=== PATIENT | male | born 1950 | race Hispanic/Latino ===

== ENCOUNTER → 2018-04-15 | Outpatient (CLI) | payer MEDICARE ==
[~2018-04-15] MED LIST: GADOBENATE DIMEGLUMINE 1 ML IV ONE
--- NOTE | 2018-04-15 15:03 | Diagnostic Imaging Report ---
EXAM: MRI Pelvis WITHOUT and WITH Contrast INDICATION: ^MALIG NEOP OF PENIS 3 years ago COMPARISON: None. TECHNIQUE: Multiplanar and multisequence imaging was performed of the pelvis from below the inferior poles of the kidneys to the lesser trochanters without and with contrast. T1-weighted, T2-weighted images, T1-weighted in and [id number], and Diffusion weighted images. Dynamic, post gadolinium T1-weighted spoiled gradient echo scans. Routine protocol was performed. IV Contrast: 20 mL of MultiHance gadolinium Oral Contrast: None Medications: None COMPLICATIONS: None FINDINGS: PROSTATE: 7.2 x 6.2 x 7.3 cm. Median lobe hypertrophy. BPH. There is however low T2 signal in the right mid medial/lateral prostate (series 7 image 44). BLADDER: Unremarkable. GI TRACT: No abnormal distention, wall thickening, or evidence of bowel obstruction. Appendix is not clearly identified. There is however no fat stranding or adenopathy in the right lower quadrant to suggest appendicitis. RECTUM: Rectum and mesorectum are unremarkable. LYMPH NODES: No lymphadenopathy. VESSELS: Unremarkable. PERITONEUM / RETROPERITONEUM: No free air or fluid. BONES: Unremarkable. SOFT TISSUES: Unremarkable. IMPRESSION: 1. No evidence of tumor recurrence or suspicious lymph nodes. 2. Prostate enlargement with T2 signal abnormality in the right peripheral zone. Correlate with PSA. Signed by: Dr. Brandon Cartagena M.D. on 04/15/2018 2:59 PM
== END ==
LOC: MRI 08:17
PROVIDERS: ATTEND Urology
DX: Z85.49 Personal history of malignant neoplasm of other male genital organs (principal); N40.0 Benign prostatic hyperplasia without lower urinary tract symptoms
CPT/HCPCS: 72197; A9577

== ENCOUNTER → 2018-05-07 | Day surgery (SDC) | payer MEDICARE ==
[2018-04-30 11:15] LABS: BASOPHILS # (AUTO) 0.1 (0.0-0.1); BASOPHILS % 0.4 % (0.0-1.0); EOSINOPHILS # (AUTO) 0.2 (0.0-0.4); EOSINOPHILS % 1.3 % (0.0-6.0); HEMATOCRIT 46.5 % (38.2-49.6); HEMOGLOBIN 15.7 g/dL (14.0-18.0); LYMPHOCYTES # (AUTO) 2.6 (1.0-3.2); LYMPHOCYTES % 20.1 % (18.0-39.1); MEAN CORPUSCULAR HEMOGLOBIN 28.4 pg (28-32); MEAN CORPUSCULAR HGB CONC 33.8 g/dL (31-35); MEAN CORPUSCULAR VOLUME 84.2 fL (81-99); MONOCYTES # (AUTO) 0.7 (0.2-0.8); MONOCYTES % 5.2 % (4.4-11.3); NEUTROPHILS # (AUTO) 9.4 (2.1-6.9); NEUTROPHILS % 72.6 % (38.7-80.0); PLATELET COUNT 395 x10e3/uL (140-360); RED BLOOD COUNT 5.52 x10e6/uL (4.3-5.7); RED CELL DISTRIBUTION WIDTH 13.2 % (11.7-14.4)
[2018-04-30 11:24] LABS: ANION GAP 16.7 mmol/L (8-16); BLOOD UREA NITROGEN 19 mg/dL (7-26); BUN/CREATININE RATIO 20 (6-25); CALCIUM 9.8 mg/dL (8.4-10.2); CARBON DIOXIDE 28 mmol/L (22-29); CHLORIDE 97 mmol/L (98-107); CREATININE, SERUM 0.93 mg/dL (0.72-1.25); EST GLOMERULAR FILTRATION RATE > 60 ML/MIN (60-); GLUCOSE 312 mg/dL (74-118); POTASSIUM 3.7 mmol/L (3.5-5.1); SODIUM 138 mmol/L (136-145)
--- NOTE | 2018-04-30 12:21 | Diagnostic Imaging Report ---
EXAMINATION: CHEST 2 VIEWS INDICATION: Pre-op. COMPARISON: None FINDINGS: TUBES and LINES: None. LUNGS: Lungs are not well inflated. Focal opacity in the right lower lung. No evidence of pulmonary edema. PLEURA: No pleural effusion or pneumothorax. HEART AND MEDIASTINUM: The cardiomediastinal silhouette is unremarkable. BONES AND SOFT TISSUES: No acute osseous lesion. Soft tissues are unremarkable. UPPER ABDOMEN: No free air under the diaphragm. IMPRESSION: Low lung volumes with focal opacity in the right lower lung, likely atelectasis. Suggest repeat chest radiograph with better pulmonary inflation to assess for resolution. Signed by: Dr. Tomasz Llanos MD on 04/30/2018 12:18 PM
[~2018-05-07] MED LIST changes: +AZELASTINE137 MCG/0.; +BUPIVACAINE 0.25% 30ML SDV INJ ONE; +CEFAZOLIN SOD 1 GM/NS 50ML 50 ML IV ONE; +DEXAMETHASONE SOD PHOS INJ 4 MG/ML VIAL ONE; +FENTANYL CITRATE/PF 100MCG/2 ML INJ ONE; +GABAPENTIN300 MG PO; -GADOBENATE DIMEGLUMINE 1 ML IV ONE; +LIDOCAINE HCL 2% LOCAL INJ 5 ML SDV VIAL INJ ONE; +LISINOPRIL-HCT1 EAC1 PO; +METFORMIN HCL500 MG PO; +MIDAZOLAM HCL 2 MG/2 ML VIAL ONE; +MUPIROCIN 2% OINT 22 GM TUBE ONE; +NORTRIPTYLINE H50 MG PO; +NOVOLOG MI100 UNIT/1 SQ; +ONDANSETRON HCL INJ 2MG/ML 2ML 2 MG/ML VIAL ONE; +PROPOFOL IV EMULSION 10 MG/ML 20 ML VIAL ONE; +SEVOFLURANE INHAL SOLN 250 ML PEN BTL ONE; +TRESIBA SQ
--- OUTSIDE RECORDS SUMMARY | 2018-05-07 05:14 | XMS REPORT | Clinical Summary ---
Author Author [facility] Address Unknown Phone Unavailable Care Team Providers Care Industrial Property Appraiser Name Role Phone Debbi Hansen MD PCP Allergies Comments Active Allergy Reactions Severity Noted Date IV iodine Iodine Hives, Rash Low 02/26/2018 Medications End Date Status Medication Sig Dispensed Refills Start Date Active atorvastatin (LIPITOR) 40 Take 40 mg by 1 MG tablet mouth daily. 8 Active ONETOUCH VERIO strip test DIRECTED 1 strips EVERY DAY 8 BEFORE MEALS IN VITRO 90 Active ezetimibe (ZETIA) 10 mg Take 10 mg by 1 tablet mouth daily. 8 Active finasteride (PROSCAR) 5 TAKE 1 TABLET 1 mg tablet ORALLY AT 8 BEDTIME Active gabapentin (NEURONTIN) TAKE 1 0 300 mg capsule CAPSULE 8 BEFORE BEDTIME ONCE A DAY ORALLY Active TRESIBA FLEXTOUCH U-200 INJECT 80 0 200 unit/mL (3 mL) UNITS ONCE A 8 insulin pen DAY SUBCUTANEOUS Active lisinopril-hydrochlorothi TAKE 1 TABLET 1 azide ONCE A DAY 8 (PRINZIDE,ZESTORETIC) ORALLY 90 20-25 mg per tablet DAYS ONCE A DAY ORALLY 90 DAYS Active metFORMIN (GLUCOPHAGE) Take 1,000 mg 1 1,000 mg tablet by mouth 2 8 (two) times a day with meals. Active nortriptyline (PAMELOR) Take by mouth 1 50 MG capsule daily. 8 Active NOVOLOG FLEXPEN U-100 0 INSULIN 100 unit/mL 9 insulin pen Active VITAMIN D2 50,000 unit TAKE ONE 3 capsule CAPSULE BY 9 MOUTH ONE TIME PER WEEK Active fluticasone (FLONASE) 50 2 sprays (100 15.8 mL 0 mcg/actuation nasal spray mcg total) by 9 Each Nare route daily. 03/28/2018 chlorpheniramine-phenylep Take 1 tablet 60 tablet 2 hrine 3.5-10 mg tablet by mouth 2 9 (two) times a day for 30 days. 03/30/2018 Discontinued fluticasone (FLONASE) 50 2 sprays (100 15.8 mL 0 mcg/actuation nasal spray mcg total) by 9 Each Nare route daily. 03/30/2018 levoFLOXacin (LEVAQUIN) Take 1 tablet 14 tablet 0 500 MG tablet (500 mg 9 total) by mouth daily for 14 days. Active Problems Problem Noted Date Chronic maxillary sinusitis 03/30/2018 Post-nasal drainage 03/30/2018 Encounters Care Team Description Date Type Specialty Austin Newman MD Chronic maxillary sinusitis (Primary Dx); Post-nasal drainage 03/30/2018 Office Visit Otolaryngology Austin Newman MD Chronic maxillary sinusitis (Primary Dx) 03/16/2018 Office Visit Otolaryngology Austin Newman MD Post-nasal drainage 03/09/2018 Hospital Radiology Encounter Austin Newman MD Post-nasal drainage (Primary Dx) 02/26/2018 Office Visit Otolaryngology after 05/06/2017 Social History Date Tobacco Use Types Packs/Day Years Used Never Smoker Smokeless Tobacco: Never Used Alcohol Use Drinks/Week oz/Week Comments Yes Sex Assigned at Date Recorded Not on file Industry Job Start Date Occupation Not on file Not on file Not on file Travel End Travel History Travel Start No recent travel history available. Last Filed Vital Signs Time Taken Vital Sign Reading 03/30/2018 10:52 AM [employer] [employer] Blood Pressure 157/81 03/30/2018 10:52 AM [employer] TECHNIC[employer] Pulse 91 - Temperature - - Respiratory Rate - - Oxygen Saturation - - Inhaled Oxygen - Concentration 03/30/2018 10:52 AM [employer] TECHNIC[employer] Weight 88.9 kg (196 lb) 03/30/2018 10:52 AM [employer] TECHNICIAN Height 165.1 cm (5' 5") 03/30/2018 10:52 AM [employer] TECHNICIAN Body Mass Index 32.62 Plan of Treatment Care Team Description [place] [id number] [facility] [address] [place], [place] [id number] 07/02/2018 Office Visit Otolaryngology Health Maintenance Due Date Last Done Comments COLON CANCER SCREENING 2000 SHINGLES VACCINES (#1) 2000 65+ PNEUMOCOCCAL VACCINE 10/27/2015 (1 of 2 - PCV13) PNEUMOCOCCAL 10/27/2015 POLYSACCHARIDE VACCINE AGE 65 AND OVER INFLUENZA VACCINE 09/23/2017 Procedures Comments Procedure Name Priority Date/Time Associated Diagnosis CT SINUS WO CONTRAST Routine 03/09/2018 Post-nasal drainage 12:58 PM [facility] TECHNICIAN after 05/06/2017 Results * CT Sinus Wo Contrast (03/09/2018 12:58 PM LAWN TECHNICIAN) Narrative Performed At EXAMINATION: CT SINUS WO CONTRAST [facility] CLINICAL HISTORY: R09.82 Postnasal drip, Nasal drainge and congestion. COMPARISON:None TECHNIQUE: Axial noncontrast enhanced images were obtained through the paranasal sinuses. Bone and soft tissue windows were displayed as well as coronal and sagittal reconstructed images.CT imaging was performed with iterative reconstruction technique and/or automated exposure control to reduce radiation dose. FINDINGS: Frontal sinuses: Mild mucosal thickening of the frontal recesses which appear mildly narrowed. Frontal sinuses are otherwise clear. Ethmoid air cells: Mild mucosal thickening and partial opacification of multiple anterior mid ethmoid air cells. Patency of the bilateral sphenoethmoidal recesses. Narrowing of the frontoethmoidal recesses. Sphenoid sinuses: Minimal mucosal thickening anteriorly with patency of the right sphenoid ostium and narrowing of the left sphenoid ostium. Maxillary sinuses: Moderate circumferential mucosal thickening of the right maxillary sinus with areas of frothy secretion. Obstruction of the right maxillary ostium. Mild polyploid mucosal thickening of the left maxillary sinus with obstruction of the left maxillary ostium. Bilateral accessory maxillary ostia with patency on the left narrowing on the right. Nasal cavity: No evidence of ulceration or mass. Minimal leftward nasal septal deviation anteriorly. Depth of the olfactory fossa measures up to 6 mm on the right. Other: Orbital contents are unremarkable. Limited evaluation the visualized intracranial contents demonstrates no acute abnormality. Small to moderate right and small left mastoid effusions with extension to the middle ear cavities. IMPRESSION: Mild to moderate sinus inflammatory changes involving the right greater than left maxillary sinuses and mid to anterior ethmoid air cells with obstruction of the maxillary ostia and small amount of frothy secretion in the right maxillary sinus. Correlate for acute on chronic sinusitis. [id number] Procedure Note Hm Interface, Radiology Results Incoming - 03/09/2018 1:27 PM [facility] TECHNICIAN EXAMINATION: CT SINUS WO CONTRAST CLINICAL HISTORY: R09.82 Postnasal drip, Nasal drainge and congestion. COMPARISON: None TECHNIQUE: Axial noncontrast enhanced images were obtained through the paranasal sinuses. Bone and soft tissue windows were displayed as well as coronal and sagittal reconstructed images. CT imaging was performed with iterative reconstruction technique and/or automated exposure control to reduce radiation dose. FINDINGS: Frontal sinuses: Mild mucosal thickening of the frontal recesses which appear mildly narrowed. Frontal sinuses are otherwise clear. Ethmoid air cells: Mild mucosal thickening and partial opacification of multiple anterior mid ethmoid air cells. Patency of the bilateral sphenoethmoidal recesses. Narrowing of the frontoethmoidal recesses. Sphenoid sinuses: Minimal mucosal thickening anteriorly with patency of the right sphenoid ostium and narrowing of the left sphenoid ostium. Maxillary sinuses: Moderate circumferential mucosal thickening of the right maxillary sinus with areas of frothy secretion. Obstruction of the right maxillary ostium. Mild polyploid mucosal thickening of the left maxillary sinus with obstruction of the left maxillary ostium. Bilateral accessory maxillary ostia with patency on the left narrowing on the right. Nasal cavity: No evidence of ulceration or mass. Minimal leftward nasal septal deviation anteriorly. Depth of the olfactory fossa measures up to 6 mm on the right. Other: Orbital contents are unremarkable. Limited evaluation the visualized intracranial contents demonstrates no acute abnormality. Small to moderate right and small left mastoid effusions with extension to the middle ear cavities. IMPRESSION: Mild to moderate sinus inflammatory changes involving the right greater than left maxillary sinuses and mid to anterior ethmoid air cells with obstruction of the maxillary ostia and small amount of frothy secretion in the right maxillary sinus. Correlate for acute on chronic sinusitis. [id number] Performing Organization Address City/State/Zipcode Phone Number [facility] [address] [place] [address] after 05/06/2017 Insurance Payer Benefit Subscriber ID Type Phone Address Plan / Group [employer] TEX[employer] xxxxxxxxx O [facility] Advance Directives Patient has advance care planning documents on file. For more information, lorri e contact: Zechariah Raymundo [address] [place] [address]
--- OUTSIDE RECORDS SUMMARY | 2018-05-07 05:16 | XMS REPORT ---
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 Problem BPH (benign prostatic hyperplasia) N40.0 Active Problem Obesity (BMI 35.0-39.9 without comorbidity) E66.01 Active Problem BMI 35.0-35.9,adult Z68.35 Active Problem Diabetes mellitus with neuropathy E11.40 Active Problem Diabetic neuropathy E11.40 Active Problem 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.20 Active Problem 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 Active Problem Hypertension I10 Active Problem Acute nasopharyngitis J00 Active Problem Type 2 diabetes mellitus with other specified complication E11.69 Active Problem History of melanoma Z85.820 Active Problem Insomnia G47.00 Active Problem Neoplasm of uncertain behavior of skin D48.5 Active Problem [facility] current use of insulin Z79.4 Active Problem Need for pneumococcal vaccination Z23 Active Problem 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, 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 Active Problem 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 G99.0 Active Problem Type 2 diabetes mellitus with diabetic neuropathy, unspecified E11.40 Active Problem Hyperlipidemia E78.5 Active Problem Major 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, single episode, moderate F32.1 Active Problem Polyneuropathy in diabetes E11.42 Active Problem Diabetic polyneuropathy associated with type 2 diabetes mellitus E11.42 Active Problem Benign hypertensive heart disease without congestive heart failure I11.9 Active Problem Obesity E66.9 Active Problem Balanitis N48.1 Active Problem Adjustment disorder with mixed anxiety and depressed mood F43.23 Active Problem Dysthymia F34.1 Active Problem 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 Problem DM eye manif type II E11.39 Active Problem Other seasonal allergic rhinitis J30.2 Active Problem 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
--- OUTSIDE RECORDS SUMMARY | 2018-05-07 05:16 | XMS REPORT ---
Author Author Debbi Salcido [facility] [employer] Address Unknown Phone Unavailable Care Team Providers Care Photo Print Specialist Name Role Phone Debbi Salcido CP Unavailable Allergies No Known Allergies Problems Problem Type Condition Code Onset Dates Condition Status Problem Diabetic neuropathy E11.40 Active Problem Diabetes mellitus with neuropathy E11.40 Active Problem Hypertension I10 Active Problem 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.20 Active Problem Type 2 diabetes mellitus with other specified complication E11.69 Active Problem Hyperlipidemia E78.5 Active Problem 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 G99.0 Active Problem 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, 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561 Active Problem 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 Problem Other seasonal allergic rhinitis J30.2 Active Problem Abrasion of right cornea, initial encounter S05.01XA Active Problem Balanitis N48.1 Active Problem Body mass index (BMI) of 35.0-35.9 in adult Z68.35 Active Problem Cancer of body of penis C60.2 Active Problem Type 2 diabetes mellitus with diabetic neuropathy, unspecified E11.40 Active Problem shelter current use of insulin Z79.4 Active Problem Obesity (BMI 35.0-39.9 without comorbidity) E66.01 Active Problem 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 Active Problem BMI 35.0-35.9,adult Z68.35 Active Problem Acute nasopharyngitis J00 Active Problem BPH (benign prostatic hyperplasia) N40.0 Active Problem 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 Problem 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 Problem DM eye manif type II E11.39 Active Problem Insomnia G47.00 Active Problem Encounter for general adult medical examination without abnormal findings Z00.00 Active Problem Polyneuropathy in diabetes E11.42 Active Problem History of melanoma Z85.820 Active Problem Neoplasm of uncertain behavior of skin D48.5 Active Medications Medication Code System Code Instructions Start Date End Date Status Dosage Augmentin [facility] [address]-63 875-125 MG Orally every 12 hrs Dec 08, 2016 Dec 18, 2016 Active 1 tablet Results No Known Results Summary Purpose eClinicalWorks Submission
--- OUTSIDE RECORDS SUMMARY | 2018-05-07 05:16 | XMS REPORT ---
Author Author Debbi Salcido [facility] eClinicalWorks Address Unknown Phone Unavailable Care Team Providers Care Surgery Specialist Name Role Phone Debbi Salcido Unavailable Allergies, Adverse Reactions, Alerts Substance Reaction Event Type Iodine Info Not Available Drug Allergy Problems Problem Type Condition Code Onset Dates Condition Status Assessment Major 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, single episode, moderate F32.1 Active Assessment Hyperlipidemia E78.5 Active Problem Encounter for general adult medical examination without abnormal findings Z00.00 Active Assessment Hypertension I10 Active Problem BPH (benign prostatic hyperplasia) N40.0 Active Problem 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 Problem Obesity (BMI 35.0-39.9 without comorbidity) E66.01 Active Problem BMI 35.0-35.9,adult Z68.35 Active Problem Diabetes mellitus with neuropathy E11.40 Active Problem 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 Problem Diabetic neuropathy E11.40 Active Problem DM eye manif type II E11.39 Active Problem 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.20 Active Problem 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 Active Problem History of melanoma Z85.820 Active Problem Acute nasopharyngitis J00 Active Problem Diabetic polyneuropathy associated with type 2 diabetes mellitus E11.42 Active Problem Benign hypertensive heart disease without congestive heart failure I11.9 Active Problem Hyperlipidemia E78.5 Active Problem Type 2 diabetes mellitus with other specified complication E11.69 Active Problem Need for pneumococcal vaccination Z23 Active Problem Hypertension I10 Active Problem Insomnia G47.00 Active Problem Neoplasm of uncertain behavior of skin D48.5 Active Problem Major 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, single episode, moderate F32.1 Active Problem Polyneuropathy in diabetes E11.42 Active Assessment BMI 35.0-35.9,adult Z68.35 Active Problem Adjustment disorder with mixed anxiety and depressed mood F43.23 Active Assessment Type 2 diabetes mellitus with other specified complication E11.69 Active Problem Dysthymia F34.1 Active Assessment BPH (benign prostatic hyperplasia) N40.0 Active Problem 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 G99.0 Active Assessment 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.20 Active Problem 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 47034588074 40 MG Orally Once a day Active 1 tablet [address] Contour Test [facility] [address]-75 0 Bottles In Vitro 3 times a day Oct 08, 2015 Active as directed Nortriptyline HCl [facility] [address]-99 25 MG Orally Once a day Active [address] [facility] 75835326223 50 MG Orally Once a day as needed for sleep Active 1-2 tablet at bedtime as needed NovoFine [facility] [address]-84 30G X 8 MM SQ QID August 02, 2015 Active as directed Lisinopril-Hydrochlorothiazide [facility] [address]-02 20-25 MG Orally Once a day Active [address] [facility] [address]-51 100 UNIT/ML Subcutaneous tid with meals Mar 26, 2016 Active 15-[address] [facility] [address]-86 200 UNIT/ML Subcutaneous once a day Feb 07, 2016 Active [address] [facility] [address]-98 1000 MG Orally Twice a day Active 1 tablet with meals Fluticasone Propionate [facility] [address]-62 50 MCG/ACT Nasally Once a day July 03, 2015 Active 2 spray in each nostril Azelastine HCl [facility] [address]-18 0.1 % Nasally Twice a day Active 1 puff in each nostril Vital Signs Date/Time: August 27, 2016 BMI 35.92 Index Weight 198.0 lbs Height 62.25 in Cardiac Monitoring Heart Rate 80 /min Blood Pressure Diastolic 81 mm Hg Blood Pressure Systolic 139 mm Hg Results No Known Results Summary Purpose eClinicalWorks Submission
--- OUTSIDE RECORDS SUMMARY | 2018-05-07 05:16 | XMS REPORT ---
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 Problem BMI 35.0-35.9,adult Z68.35 Active Problem Diabetes mellitus with neuropathy E11.40 Active Problem Diabetic neuropathy E11.40 Active Problem 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.20 Active Problem Hypertension I10 Active Problem Acute nasopharyngitis J00 Active Problem Type 2 diabetes mellitus with other specified complication E11.69 Active Problem History of melanoma Z85.820 Active Problem Hyperlipidemia E78.5 Active Problem Neoplasm of uncertain behavior of skin D48.5 Active Problem Polyneuropathy in diabetes E11.42 Active Problem Insomnia G47.00 Active Problem Type 2 diabetes mellitus with diabetic neuropathy, unspecified E11.40 Active Problem USP current use of insulin Z79.4 Active Problem Adjustment disorder with mixed anxiety and depressed mood F43.23 Active Problem Depression of infancy to early morning, 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 Active Problem Acute pain of right knee M25.561 Active Problem 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 G99.0 Active Problem Benign hypertensive heart disease without congestive heart failure I11.9 Active Problem Major 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, single episode, moderate F32.1 Active Problem Need for pneumococcal vaccination Z23 Active Problem Diabetic polyneuropathy associated with type 2 diabetes mellitus E11.42 Active Assessment Benign hypertensive heart disease without congestive heart failure I11.9 Active Problem Balanitis N48.1 Active Assessment Acute pain of right knee M25.561 Active Problem Other seasonal allergic rhinitis J30.2 Active Problem Dysthymia F34.1 Active Assessment BMI 35.0-35.9,adult Z68.35 Active Problem Obesity E66.9 Active Problem DM eye manif type II E11.39 Active Problem 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 Active Problem 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 Problem 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 Medications Medication Code System Code Instructions Start Date End Date Status Dosage Atorvastatin Calcium [facility] 87859821623 40 MG Orally Once a day Active 1 tablet Metformin HCl [facility] [address]-85 1000 MG Orally Twice a day Active 1 tablet with meals NovoLog Flexpen [facility] 67311669384 100 UNIT/ML Subcutaneous tid with meals Active as directed Valdo Contour Test [facility] [address]-92 0 Bottles In Vitro 3 times a day Oct 08, 2015 Active as directed Fluticasone Propionate [facility] [address]-47 50 MCG/ACT Nasally Once a day July 03, 2015 Active 2 spray in each nostril Trazodone HCl [facility] 96968755697 50 MG Orally Once a day as needed for sleep Active 1-2 tablet at bedtime as needed Tramadol HCl [facility] [address]-35 50 MG Orally every 12 hrs Sep 26, 2016 Nov 25, 2016 Active 1 tablet as needed Lisinopril-Hydrochlorothiazide [facility] [address]-92 20-25 MG Orally Once a day Active 1 tablet Azelastine HCl [facility] [address]-22 0.1 % Nasally Twice a day Active 1 puff in each nostril NovoFine [facility] [address]-27 30G X 8 MM SQ QID August 02, 2015 Active as directed Nortriptyline HCl [facility] [address]-86 25 MG Orally Once a day Active 1 capsule Tresiba FlexTouch [facility] [address]-08 200 UNIT/ML Subcutaneous once a day Feb 07, 2016 Active 80 units Vital Signs Date/Time: Sep 26, 2016 BMI 35.74 Index Weight 197.0 lbs Height 62.25 in Cardiac Monitoring Heart Rate 82 /min Blood Pressure Diastolic 76 mm Hg Blood Pressure Systolic 116 mm Hg Results No Known Results Summary Purpose eClinicalWorks Submission
--- OUTSIDE RECORDS SUMMARY | 2018-05-07 05:16 | XMS REPORT | Continuity of Care Document ---
Author Author [facility] Interface Address Unknown Phone Unavailable Problems Problem Status Onset Date Classification Date Reported Comments Source Diabetic neuropathy Active Problem 05/06/2018 [facility] Diabetes mellitus with neuropathy Active Problem 05/06/2018 [facility] Hypertension Active Problem 05/06/2018 [facility] 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 cycle Active Problem 05/06/2018 [facility] Type 2 diabetes mellitus with other specified complication Active Diagnosis 05/06/2018 [facility] Hyperlipidemia Active Problem 05/06/2018 [facility] 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 Active Problem 05/06/2018 [facility] 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, 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 Active Problem 05/06/2018 [facility] Adjustment disorder with mixed anxiety and depressed mood Active Problem 05/06/2018 [facility] Major 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, single episode, moderate Active Problem 05/06/2018 [facility] Dysthymia Active Problem 05/06/2018 [facility] Benign hypertensive heart disease without congestive heart failure Active Problem 05/06/2018 [facility] Obesity Active Problem 05/06/2018 [facility] Diabetic polyneuropathy associated with type 2 diabetes mellitus Active Problem 05/06/2018 [facility] Chronic seasonal allergic rhinitis, unspecified trigger Active Problem 05/06/2018 [facility] Need for pneumococcal vaccination Active Problem 05/06/2018 [facility] Acute eye pain Active Problem 05/06/2018 [facility] Acute pain of right knee Active Problem 05/06/2018 [facility] Carcinoma in situ of penis Active Problem 05/06/2018 [facility] Other seasonal allergic rhinitis Active Problem 05/06/2018 [facility] Abrasion of right cornea, initial encounter Active Problem 05/06/2018 [facility] Balanitis Active Problem 05/06/2018 [facility] Body mass index of 35.0-35.9 in adult Active Problem 05/06/2018 [facility] Cancer of body of penis Active Problem 05/06/2018 [facility] Type 2 diabetes mellitus with diabetic neuropathy, unspecified Active Problem 05/06/2018 [facility] senior living current use of insulin Active Problem 05/06/2018 [facility] Obesity Active Problem 05/06/2018 [facility] Tinnitus of both ears Active Problem 05/06/2018 [facility] BMI 35.0-35.9,adult Active Problem 05/06/2018 [facility] Acute nasopharyngitis Active Problem 05/06/2018 [facility] BPH Active Problem 05/06/2018 [facility] Malignant neoplasm of body of penis Active Problem 05/06/2018 [facility] 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 [facility] DM eye manif type II Active Problem 05/06/2018 [facility] Insomnia Active Problem 05/06/2018 [facility] Encounter for general adult medical examination without abnormal findings Active Problem 05/06/2018 [facility] Polyneuropathy in diabetes Active Problem 05/06/2018 [facility] History of melanoma Active Problem 05/06/2018 [facility] Neoplasm of uncertain behavior of skin Active Problem 05/06/2018 [facility] Needs flu shot Active Diagnosis 11/25/2017 [facility] Allergic conjunctivitis of both eyes Active Problem 05/06/2018 [facility] BMI 36.0-36.9,adult Active Problem 05/06/2018 [facility] Acute bilateral low back pain without sciatica Active Problem 05/06/2018 [facility] Constipation, unspecified Active Problem 05/06/2018 [facility] Possible urinary tract infection Active Problem 05/06/2018 [facility] Routine general medical examination at a health care facility Active Problem 05/06/2018 [facility] Leukocytosis, unspecified Active Problem 05/06/2018 [facility] Hypertensive heart disease without heart failure Active Problem 05/06/2018 [facility] Body mass index of 34.0-34.9 in adult Active Problem 05/06/2018 [facility] Body mass index of 36.0-36.9 in adult Active Problem 05/06/2018 [facility] Chronic sinusitis of both maxillary sinuses Active Problem 05/06/2018 [facility] Uncontrolled type 2 diabetes mellitus with hyperglycemia Active Problem 05/06/2018 [facility] Encounter for screening for malignant neoplasm of prostate Active Diagnosis 03/02/2018 [facility] Encounter for screening for HIV Active Diagnosis 03/02/2018 [facility] Contact with and suspected exposure to communicable disease Active Diagnosis 03/02/2018 [facility] 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 [facility] Localized scleroderma [morphea] Active Diagnosis 08/16/2015 [facility] Sensorineural hearing loss, bilateral Active Diagnosis 08/16/2015 [facility] Chronic rhinitis Active Diagnosis 08/16/2015 [facility] Lichen sclerosus Active Diagnosis 08/16/2015 [facility] Medications Medication Details Route Status Patient Instructions Ordering Provider Order Date Source Vitamin D (Ergocalciferol) 1 capsule Orally Active 94011 UNIT Orally once a week Dugano Daphnis 04/30/2018 [facility] Vitamin D (Ergocalciferol) 1 capsule Orally Active 90598 UNIT Orally once a week Dugano Daphnis 03/08/2018 [facility] Shingrix as directed Intramuscular Active 50 MCG Intramuscular once Dugano Daphnis 03/01/2018 [facility] Pneumococcal 13-Jenni Conj Vacc as directed Intramuscular Active - Intramuscular once Dugano Daphnis 03/01/2018 [facility] Gabapentin 1 capsule before bedtime Orally Active 300 MG Orally Twice a day Dugano Daphnis 10/19/2017 [facility] Zetia 1 tablet Orally Active 10 MG Orally Once a day Dugano Daphnis 09/04/2017 [facility] MiraLax as directed Orally Active - Orally Dugano Daphnis 07/27/2017 [facility] Cipro 1 tablet Orally Active 250 MG Orally every 12 hrs Dugano Daphnis 07/27/2017 [facility] Lactulose 15 ml Orally Active 20 GM/30ML Orally Once a day Dugano Daphnis 07/27/2017 [facility] Trulicity 0.5 mL Subcutaneous Active 0.75 mg/0.5 mL Subcutaneous not taking Dugano Daphnis 06/10/2017 [facility] Olopatadine HCl as directed Ophthalmic Active 0.2 % Ophthalmic Once a day Dugano Daphnis 06/02/2017 [facility] Code Blue Verio Flex System as directed SQ Active w/Device SQ QAC Dugano Daphnis 03/04/2017 [facility] OneTouch Verio as directed In Vitro Active - In Vitro QAC Dugano Daphnis 03/04/2017 [facility] Victoza 1.2 mg Subcutaneous Active 18 MG/3ML Subcutaneous not taking Dugano Daphnis 03/03/2017 [facility] Trazodone HCl 1 tablet at bedtime NA Active 50 MG Once at bedtime Dugano Daphnis 03/03/2017 [facility] Augmentin 1 tablet Orally Active 875-125 MG Orally every 12 hrs Dugano Daphnis 12/08/2016 [facility] Fluticasone Propionate 2 spray in each nostril Nasally Active 50 MCG/ACT Nasally Once a day Dugano Daphnis 11/04/2016 [facility] Fluticasone Propionate 2 spray in each nostril Nasally Active 50 MCG/ACT Nasally Once a day Dugano Daphnis 11/04/2016 [facility] Tramadol HCl 1 tablet as needed Orally Active 50 MG Orally every 12 hrs Dugano Daphnis 09/26/2016 [facility] Tramadol HCl 1 tablet as needed Orally Active 50 MG Orally every 12 hrs Dugano Daphnis 09/26/2016 [facility] NovoLog Flexpen 15-18 units Subcutaneous Active 100 UNIT/ML Subcutaneous tid with meals Dugano Daphnis 03/26/2016 [facility] Humalog KwikPen 15 units with meals Subcutaneous No Longer Active 100 UNIT/ML Subcutaneous three times a day Dugano Daphnis 03/26/2016 [facility] Tresiba FlexTouch 80 units Subcutaneous Active 200 UNIT/ML Subcutaneous once a day Dugano Daphnis 02/07/2016 [facility] Tresiba FlexTouch 80 units Subcutaneous Active 200 UNIT/ML Subcutaneous once a day Dugano Daphnis 02/07/2016 [facility] Toujeo SoloStar 60 units SubQ No Longer Active 300 units/ml SubQ once a day Dugano Daphnis 02/07/2016 [facility] Valdo Contour Test as directed In Vitro Active 0 Bottles In Vitro 3 times a day Dugano Daphnis 10/08/2015 [facility] Valdo Contour Test as directed In Vitro Active 0 Bottles In Vitro 3 times a day Dugano Daphnis 10/08/2015 [facility] Atorvastatin Calcium 1 tablet Orally Active 40 MG Orally Once a day Dugano Daphnis 08/03/2015 [facility] NovoFine as directed SQ Active 30G X 8 MM SQ QID Dugano Daphnis 08/02/2015 [facility] NovoFine as directed SQ Active 30G X 8 MM SQ QID Dugano Daphnis 08/02/2015 [facility] Tresiba 57 units Subcutaneous Active 200 Subcutaneous Once a day Dugano Daphnis 08/02/2015 [facility] Toujeo SoloStar 57 units SubQ No Longer Active 300 units/ml SubQ once a day Dugano Daphnis 08/02/2015 [facility] Zithromax Z-Alex 2 tablets on the first day, then 1 tablet daily for 4 days Orally Active 250 MG Orally Once a day Dugano Daphnis 07/12/2015 [facility] Fluticasone Propionate 2 spray in each nostril Nasally Active 50 MCG/ACT Nasally Once a day Dugano Daphnis 07/03/2015 [facility] Tessalon Perles 1 capsule as needed Orally Active 100 MG Orally Three times a day Way 07/03/2015 [facility] Trazodone HCl 1-2 tablet at bedtime as needed Orally Active 50 MG Orally Once a day as needed for sleep Dugano Daphnis 05/02/2015 [facility] Glimepiride 1 tablet with breakfast or the first main meal of the day Orally No Longer Active 4 MG Orally Once a day Way 05/02/2015 [facility] Clonazepam 1 tablet Orally No Longer Active 0.5 MG Orally Twice a day [address] 05/02/2015 [facility] Nortriptyline HCl 1 capsule Orally Active 25 MG Orally Once a day Dugano Daphnis [facility] Lisinopril-Hydrochlorothiazide 1 tablet Orally Active 20-25 MG Orally [facility] Azelastine HCl 1 puff in each nostril Nasally Active 0.1 % Nasally Twice a day [facility] Trazodone HCl 1-2 tablet at bedtime as needed Orally Active 50 MG Orally Once a day as needed for sleep [facility] Atorvastatin Calcium TAKE 1 TABLET ONCE A DAY ORALLY 90 DAYS orally Active 40 MG orally once a day Dugano Daphnis [facility] NovoLog Flexpen 10 units Subcutaneous Active 100 UNIT/ML Subcutaneous tid with meals [facility] Metformin HCl 1 tablet with meals Orally Active 1000 MG Orally Twice a day [facility] Fluticasone Propionate INSTILL 2 SPRAY IN EACH NOSTRIL ONCE A DAY NASALLY 30 DAY(S) Nasally Active 50 MCG/ACT Nasally prn [facility] Metformin HCl 1 tablet with a meal Orally Active 1000 MG Orally Twice a day [facility] Tresiba FlexTouch 85 units Subcutaneous Active 200 UNIT/ML Subcutaneous once a day [facility] Nortriptyline HCl 1 capsule orally Active 50 MG orally once a day [facility] Azelastine HCl 1 puff in each nostril Nasally Active 0.1 % Nasally Twice a day [facility] Lisinopril-Hydrochlorothiazide take 1 tablet once a day orally 90 days Orally Active 20-25 MG Orally Once a day [facility] Valdo Contour Next Test USE DIRECTED 3 TIMES A DAY NA Active - [facility]avanFormerly [facility] Atorvastatin Calcium 1 tablet Orally Active 40 MG Orally Once a day [facility] Metformin HCl take 1 tablet with meals twice a day orally 90 days Orally Active 1000 MG Orally Twice a day [facility] MiraLax as directed Orally Active - Orally [facility] Lisinopril-Hydrochlorothiazide TAKE 1 TABLET ONCE A DAY ORALLY 90 DAYS orally Active 20-25 MG orally once a day [facility] Sudafed 1 tablet as needed Orally Active 30 MG Orally every 6 hrs [facility] OneTouch Verio as directed In Vitro Active - In Vitro QAC [facility] Sudafed 12 Hour 1 tablet as needed Orally Active 120 MG Orally every 12 hrs [facility] Lovastatin 1 tablet with a meal Orally Active 40 MG Orally Once a day [facility] Toujeo SoloStar 60 units SubQ Active 300 units/ml SubQ once a day Peri Snideris [facility] [employer] Humalog KwikPen 15 units with meals Subcutaneous Active 100 UNIT/ML Subcutaneous three times a day [facility] [employer] Lovastatin 1 tablet with a meal Orally Active 20 MG Orally Once a day [address] [facility] Allergies, Adverse Reactions, Alerts Substance Category Reaction Severity Reaction type Status Date Reported Comments Source Iodine Adverse Reaction Info Not Available Adverse Reaction Active 03/01/2018 [facility] Immunizations Immunization Date Given Site Status Last Updated Comments Source Flu - Medicare 11/23/2017 completed [facility] Flu - Medicare 10/17/2016 completed [facility] Pneumonia - Medicare 02/11/2016 completed [facility] Flu - Medicare 11/08/2015 completed [facility] Flu, 3 y + 11/08/2015 completed [facility] Results Order Name Results Value Reference Range Date Interpretation Comments Source Vital Signs Vital Sign Value Date Comments Source Weight 196.3 03/01/2018 [facility] Height 62.25 03/01/2018 [facility] Heart Rate 87 03/01/2018 [facility] Diastolic (mm Hg) 80 03/01/2018 [facility] Systolic (mm Hg) 134 03/01/2018 [facility] Weight 197.2 01/18/2018 [facility] Height 62.25 01/18/2018 [facility] Heart Rate 83 01/18/2018 [facility] Diastolic (mm Hg) 80 01/18/2018 [facility] Systolic (mm Hg) 136 01/18/2018 [facility] Weight 195.2 12/02/2017 [facility] Height 62.25 12/02/2017 [facility] Heart Rate 79 12/02/2017 [facility] Diastolic (mm Hg) 80 12/02/2017 [facility] Systolic (mm Hg) 127 12/02/2017 [facility] Weight 200.6 11/23/2017 [facility] Height 62.25 11/23/2017 [facility] [employer] Temperature Oral (F) 97.9 F 11/23/2017 [facility] Heart Rate 80 11/23/2017 [facility] Diastolic (mm Hg) 78 11/23/2017 [facility] Systolic (mm Hg) 159 11/23/2017 [facility] Weight 197.0 10/19/2017 [facility] Height 62.25 10/19/2017 [facility] Heart Rate 94 10/19/2017 [facility] Diastolic (mm Hg) 83 10/19/2017 [facility] Systolic (mm Hg) 145 10/19/2017 [facility] Weight 197.2 09/01/2017 [facility] Height 62.25 09/01/2017 [facility] Heart Rate 87 09/01/2017 [facility] Diastolic (mm Hg) 79 09/01/2017 [facility] Systolic (mm Hg) 143 09/01/2017 [facility] Weight 198.6 07/27/2017 [facility] Height 62.25 07/27/2017 [facility] Heart Rate 87 07/27/2017 [facility] Diastolic (mm Hg) 85 07/27/2017 [facility] Systolic (mm Hg) 138 07/27/2017 [facility] Weight 199.4 06/02/2017 [facility] Height 62.25 06/02/2017 [facility] Heart Rate 89 06/02/2017 [facility] Diastolic (mm Hg) 80 06/02/2017 [facility] Systolic (mm Hg) 144 06/02/2017 [facility] Weight 195.0 03/03/2017 [facility] Height 62.25 03/03/2017 [facility] Heart Rate 75 03/03/2017 [facility] Diastolic (mm Hg) 80 03/03/2017 [facility] Systolic (mm Hg) 144 03/03/2017 [facility] Weight 196.2 12/01/2016 [facility] Height 62.25 12/01/2016 [facility] Heart Rate 84 12/01/2016 [facility] Diastolic (mm Hg) 75 12/01/2016 [facility] Systolic (mm Hg) 135 12/01/2016 [facility] Weight 195.8 11/04/2016 [facility] Height 62.25 11/04/2016 [facility] Heart Rate 86 11/04/2016 [facility] Diastolic (mm Hg) 83 11/04/2016 [facility] Systolic (mm Hg) 138 11/04/2016 [facility] Weight 197.4 10/17/2016 [facility] Height 62.25 10/17/2016 [facility] Temperature Oral (F) 98.5 F 10/17/2016 [facility] Heart Rate 89 10/17/2016 [facility] Diastolic (mm Hg) 80 10/17/2016 [facility] Systolic (mm Hg) 130 10/17/2016 [facility] Weight 197.0 09/26/2016 [facility] Height 62.25 09/26/2016 [facility] Heart Rate 82 09/26/2016 [facility] Diastolic (mm Hg) 76 09/26/2016 [facility] Systolic (mm Hg) 116 09/26/2016 [facility] Weight 198.0 08/27/2016 [facility] Height 62.25 08/27/2016 [facility] Heart Rate 80 08/27/2016 [facility] Diastolic (mm Hg) 81 08/27/2016 [facility] Systolic (mm Hg) 139 08/27/2016 [facility] Weight 195.4 05/28/2016 [facility] Height 62.25 05/28/2016 [facility] Heart Rate 63 05/28/2016 [facility] Diastolic (mm Hg) 72 05/28/2016 [facility] Systolic (mm Hg) 119 05/28/2016 [facility] Weight 195.6 02/11/2016 [facility] Height 62 02/11/2016 [facility] Temperature Oral (F) 98.1 F 02/11/2016 [facility] Heart Rate 96 02/11/2016 [facility] Diastolic (mm Hg) 83 02/11/2016 [facility] Systolic (mm Hg) 146 02/11/2016 [facility] Weight 193.4 02/07/2016 [facility] Height 62 02/07/2016 [facility] Heart Rate 81 02/07/2016 [facility] Diastolic (mm Hg) 82 02/07/2016 [facility] Systolic (mm Hg) 148 02/07/2016 [facility] Weight 191.4 11/08/2015 [facility] Height 62 11/08/2015 [facility] Heart Rate 79 11/08/2015 [facility] Diastolic (mm Hg) 83 11/08/2015 [facility] Systolic (mm Hg) 131 11/08/2015 [facility] Weight 194.6 08/02/2015 [facility] Height 62 08/02/2015 [facility] Heart Rate 88 08/02/2015 [facility] Diastolic (mm Hg) 69 08/02/2015 [facility] Systolic (mm Hg) 115 08/02/2015 [facility] Weight 193.4 07/03/2015 [facility] Height 62 07/03/2015 [facility] Temperature Oral (F) 97.9 F 07/03/2015 [facility] Heart Rate 88 07/03/2015 [facility] Diastolic (mm Hg) 70 07/03/2015 [facility] Systolic (mm Hg) 112 07/03/2015 [facility] Weight 196.6 05/02/2015 [facility] Height 62 05/02/2015 [facility] Heart Rate 87 05/02/2015 [facility] Diastolic (mm Hg) 87 05/02/2015 [facility] Systolic (mm Hg) 137 05/02/2015 [facility] Encounters Location Location Details Encounter Type Encounter Number Reason For Visit Attending Provider ADM Date DC Date Status Source [facility], PEstephanieAEstephanie HORIZONTAL BORING MILL OPERATOR, [facility] [id number] 05/02/2015 05/02/2015 [facility] PEstephanieAEstephanie HORIZONTAL BORING MILL OPERATOR, [facility] [id number] 05/02/2015 05/02/2015 [facility] [place] HORIZONTAL BORING MILL OPERATOR, [facility] [id number] 05/02/2015 05/02/2015 [facility] PEstephanieAEstephanie HORIZONTAL BORING MILL OPERATOR, [facility] [id number] 05/02/2015 05/02/2015 [facility] PEstephanieAEstephanie HORIZONTAL BORING MILL OPERATOR, [facility] [id number] 05/02/2015 05/02/2015 [facility] PEstephanieAEstephanie HORIZONTAL BORING MILL OPERATOR, [facility] [id number] 05/02/2015 05/02/2015 [facility], Meggan DOMINGUEZ, [facility] [id number] 05/02/2015 05/02/2015 [facility], [facility] [id number] 05/02/2015 05/02/2015 [facility], [facility] [id number] 05/02/2015 05/02/2015 [facility] NP, [facility] [id number] 05/02/2015 05/02/2015 [facility] Group[facility]eg[facility] NP, [facility] [id number] 05/02/2015 05/02/2015 [facility], [facility] [id number] 05/02/2015 05/02/2015 [facility], [facility] [id number] 05/02/2015 05/02/2015 [facility], [facility] [id number] 05/02/2015 05/02/2015 [facility], [facility] [id number] 05/02/2015 05/02/2015 [facility], [facility] [id number] 05/02/2015 05/02/2015 [facility] Unknown [id number] 05/11/2015 05/11/2015 [facility] Unknown [id number] 05/11/2015 05/11/2015 [facility] Unknown [id number] 05/11/2015 05/11/2015 [facility] Unknown [id number] 05/11/2015 05/11/2015 [facility] Unknown [id number] 05/11/2015 05/11/2015 [facility] Unknown [id number] 05/11/2015 05/11/2015 [facility] Unknown [id number] 05/11/2015 05/11/2015 [facility] Unknown [id number] 05/11/2015 05/11/2015 [facility] Unknown [id number] 05/11/2015 05/11/2015 [facility] Unknown [id number] 05/11/2015 05/11/2015 [facility] Unknown [id number] 05/11/2015 05/11/2015 [facility] Unknown [id number] 05/11/2015 05/11/2015 [facility] Unknown [id number] 05/11/2015 05/11/2015 [facility] Unknown [id number] 05/11/2015 05/11/2015 [facility] Unknown [id number] 05/11/2015 05/11/2015 [facility] Referral [id number] 05/22/2015 05/22/2015 [facility] Referral [id number] 05/22/2015 05/22/2015 [facility] Referral [id number] 05/22/2015 05/22/2015 [facility] Referral [id number] 05/22/2015 05/22/2015 [facility] Referral [id number] 05/22/2015 05/22/2015 [facility] Referral [id number] 05/22/2015 05/22/2015 [facility] Referral [id number] 05/22/2015 05/22/2015 [facility] Referral [id number] 05/22/2015 05/22/2015 [facility] Referral [id number] 05/22/2015 05/22/2015 [facility] Referral [id number] 05/22/2015 05/22/2015 [facility] Referral [id number] 05/22/2015 05/22/2015 [facility] Referral [id number] 05/22/2015 05/22/2015 [facility] Referral [id number] 05/22/2015 05/22/2015 [facility] Referral [id number] 05/22/2015 05/22/2015 [facility] Cough, congestion [id number] 07/03/2015 07/03/2015 [facility] Cough, congestion [id number] 07/03/2015 07/03/2015 [facility] Cough, congestion [id number] 07/03/2015 07/03/2015 [facility] Cough, congestion [id number] 07/03/2015 07/03/2015 [facility] Cough, congestion [id number] 07/03/2015 07/03/2015 [facility] Cough, congestion [id number] 07/03/2015 07/03/2015 [facility] Cough, congestion [id number] 07/03/2015 07/03/2015 [facility] Cough, congestion [id number] 07/03/2015 07/03/2015 [facility] Cough, congestion [id number] 07/03/2015 07/03/2015 [facility] Cough, congestion [id number] 07/03/2015 07/03/2015 [facility] Cough, congestion [id number] 07/03/2015 07/03/2015 [facility] Cough, congestion [id number] 07/03/2015 07/03/2015 [facility] Cough, congestion [id number] 07/03/2015 07/03/2015 [facility] Cough [id number] 07/11/2015 07/11/2015 [facility] Cough [id number] 07/11/2015 07/11/2015 [facility] Cough [id number] 07/11/2015 07/11/2015 [facility] Cough [id number] 07/11/2015 07/11/2015 [facility] Cough [id number] 07/11/2015 07/11/2015 [facility] Cough [id number] 07/11/2015 07/11/2015 [facility] Cough [id number] 07/11/2015 07/11/2015 [facility] Cough [id number] 07/11/2015 07/11/2015 [facility] Cough [id number] 07/11/2015 07/11/2015 [facility] Cough [id number] 07/11/2015 07/11/2015 [facility] Cough [id number] 07/11/2015 07/11/2015 [facility] Cough [id number] 07/11/2015 07/11/2015 [facility] 3 mo f/u fasting labs, meds [id number] 08/02/2015 08/02/2015 [facility] 3 mo f/u fasting labs, meds [id number] 08/02/2015 08/02/2015 [facility] 3 mo f/u fasting labs, meds [id number] 08/02/2015 08/02/2015 [facility] 3 mo f/u fasting labs, meds [id number] 08/02/2015 08/02/2015 [facility] 3 mo f/u fasting labs, meds [id number] 08/02/2015 08/02/2015 [facility] 3 mo f/u fasting labs, meds [id number] 08/02/2015 08/02/2015 [facility] 3 mo f/u fasting labs, meds [id number] 08/02/2015 08/02/2015 [facility] 3 mo f/u fasting labs, meds [id number] 08/02/2015 08/02/2015 [facility] 3 mo f/u fasting labs, meds [id number] 08/02/2015 08/02/2015 [facility] 3 mo f/u fasting labs, meds [id number] 08/02/2015 08/02/2015 [facility] Unknown [id number] 08/03/2015 08/03/2015 [facility] Unknown [id number] 08/03/2015 08/03/2015 [facility] Unknown [id number] 08/03/2015 08/03/2015 [facility] Unknown [id number] 08/03/2015 08/03/2015 [facility] Unknown [id number] 08/03/2015 08/03/2015 [facility] Unknown [id number] 08/03/2015 08/03/2015 [facility] Unknown [id number] 08/03/2015 08/03/2015 [facility] Unknown [id number] 08/03/2015 08/03/2015 [facility] Unknown [id number] 08/03/2015 08/03/2015 [facility] Unknown [id number] 08/03/2015 08/03/2015 [facility] Unknown [id number] 08/03/2015 08/03/2015 [facility] Referral [id number] 08/20/2015 08/20/2015 [facility] Referral [id number] 08/20/2015 08/20/2015 [facility] Referral [id number] 08/20/2015 08/20/2015 [facility] Referral [id number] 08/20/2015 08/20/2015 [facility] Referral [id number] 08/20/2015 08/20/2015 [facility] Referral [id number] 08/20/2015 08/20/2015 [facility] Referral [id number] 08/20/2015 08/20/2015 [facility] Referral [id number] 08/20/2015 08/20/2015 [facility] Referral [id number] 08/20/2015 08/20/2015 [facility] Medication [id number] 10/01/2015 10/01/2015 [facility] Medication [id number] 10/01/2015 10/01/2015 [facility] Medication [id number] 10/01/2015 10/01/2015 [facility] Medication [id number] 10/01/2015 10/01/2015 [facility] Medication [id number] 10/01/2015 10/01/2015 [facility] Medication [id number] 10/01/2015 10/01/2015 [facility] Medication [id number] 10/01/2015 10/01/2015 [facility] Medication [id number] 10/01/2015 10/01/2015 [facility] MEdication Refill [id number] 10/08/2015 10/08/2015 [facility] MEdication Refill [id number] 10/08/2015 10/08/2015 [facility] MEdication Refill [id number] 10/08/2015 10/08/2015 [facility] MEdication Refill [id number] 10/08/2015 10/08/2015 [facility] MEdication Refill [id number] 10/08/2015 10/08/2015 [facility] MEdication Refill [id number] 10/08/2015 10/08/2015 [facility] MEdication Refill [id number] 10/08/2015 10/08/2015 [facility] 3mnth, fasting labs, meds [id number] 11/08/2015 11/08/2015 [facility] 3mnth, fasting labs, meds [id number] 11/08/2015 11/08/2015 [facility] 3mnth, fasting labs, meds [id number] 11/08/2015 11/08/2015 [facility] 3mnth, fasting labs, meds [id number] 11/08/2015 11/08/2015 [facility] 3mnth, fasting labs, meds [id number] 11/08/2015 11/08/2015 [facility] 3mnth, fasting labs, meds [id number] 11/08/2015 11/08/2015 [facility] Unknown [id number] 11/09/2015 11/09/2015 [facility] Unknown [id number] 11/09/2015 11/09/2015 [facility] Unknown [id number] 11/09/2015 11/09/2015 [facility] Unknown [id number] 11/09/2015 11/09/2015 [facility] Unknown [id number] 11/09/2015 11/09/2015 [facility] 3mnth f/u fasting labs, meds [id number] 02/07/2016 02/07/2016 [facility] 3mnth f/u fasting labs, meds [id number] 02/07/2016 02/07/2016 [facility] 3mnth f/u fasting labs, meds [id number] 02/07/2016 02/07/2016 [facility] 3mnth f/u fasting labs, meds [id number] 02/07/2016 02/07/2016 [facility] pneumonia vaccine [id number] 02/11/2016 02/11/2016 [facility] pneumonia vaccine [id number] 02/11/2016 02/11/2016 [facility] pneumonia vaccine [id number] 02/11/2016 02/11/2016 [facility] med refill [id number] 02/26/2016 02/26/2016 [facility] med refill [id number] 02/26/2016 02/26/2016 [facility] med change [id number] 03/26/2016 03/26/2016 [facility] Procedures Procedure Code Date Perfomer Comments Source
--- OUTSIDE RECORDS SUMMARY | 2018-05-07 05:16 | XMS REPORT ---
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 Problem [...] uncertain behavior of skin D48.5 Active Problem director long term care current use of insulin Z79.4 Active Problem Need for pneumococcal vaccination Z23 Active Problem 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
--- OUTSIDE RECORDS SUMMARY | 2018-05-07 05:16 | XMS REPORT ---
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 Active Problem Acute pain of right knee M25.561 Active Problem 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 G99.0 Active Problem Benign hypertensive heart disease without congestive heart failure I11.9 Active Problem Major 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, single episode, moderate F32.1 Active Problem Need for pneumococcal vaccination Z23 Active Problem Diabetic polyneuropathy associated with type 2 diabetes mellitus E11.42 Active Problem Balanitis N48.1 Active Assessment Needs flu shot Z23 Active Problem Other seasonal allergic rhinitis J30.2 Active Problem Dysthymia F34.1 Active Problem Obesity E66.9 Active Problem DM eye manif type II E11.39 Active Problem 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 Active Problem 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 Problem 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 Medications Medication Code System Code Instructions Start Date End Date Status Dosage Lisinopril-Hydrochlorothiazide [facility] [address]-05 20-25 MG Orally Once a day Active 1 tablet Azelastine HCl [facility] [address]-21 0.1 % Nasally Twice a day Active 1 puff in each nostril Nortriptyline HCl [facility] [address]-40 25 MG Orally Once a day Active 1 capsule Trazodone HCl [facility] 69357591737 50 MG Orally Once a day as needed for sleep Active 1-2 tablet at bedtime as needed Valdo Contour Test [facility] [address]-38 0 Bottles In Vitro 3 times a day Oct 08, 2015 Active as directed NovoFine [facility] [address]-57 30G X 8 MM SQ QID August 02, 2015 Active as directed Atorvastatin Calcium [facility] 71698496721 40 MG Orally Once a day Active 1 tablet Tresiba FlexTouch [facility] [address]-61 200 UNIT/ML Subcutaneous once a day Feb 07, 2016 Active 80 units Fluticasone Propionate [facility] [address]-47 50 MCG/ACT Nasally Once a day July 03, 2015 Active 2 spray in each nostril Tramadol HCl [facility] [address]-59 50 MG Orally every 12 hrs Sep 26, 2016 Nov 25, 2016 Active 1 tablet as needed NovoLog Flexpen [facility] 67056146935 100 UNIT/ML Subcutaneous tid with meals Active as directed Metformin HCl [facility] [address]-13 1000 MG Orally Twice a day Active 1 tablet with meals Vital Signs Date/Time: Oct 17, 2016 BMI 35.81 Index Weight 197.4 lbs Height 62.25 in Temperature 98.5 F Cardiac Monitoring Heart Rate 89 /min Blood Pressure Diastolic 80 mm Hg Blood Pressure Systolic 130 mm Hg Results No Known Results Immunizations Vaccine Administration Date Flu - Medicare Oct 17, 2016 Summary Purpose eClinicalWorks Submission
--- OUTSIDE RECORDS SUMMARY | 2018-05-07 05:16 | XMS REPORT ---
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.4 Active Problem Adjustment disorder with mixed anxiety and depressed mood F43.23 Active Problem Depression of infancy to medical corps officer, 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 Active Problem Acute pain of right knee M25.561 Active Problem 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 G99.0 Active Problem Benign hypertensive heart disease without congestive heart failure I11.9 Active Problem Major 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, single episode, moderate F32.1 Active Problem Need for pneumococcal vaccination Z23 Active Problem Diabetic polyneuropathy associated with type 2 diabetes mellitus E11.42 Active Problem Balanitis N48.1 Active Problem Other seasonal allergic rhinitis J30.2 Active Problem Dysthymia F34.1 Active Problem Obesity E66.9 Active Problem DM eye manif type II E11.39 Active Problem 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
--- OUTSIDE RECORDS SUMMARY | 2018-05-07 05:16 | XMS REPORT ---
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
--- OUTSIDE RECORDS SUMMARY | 2018-05-07 05:17 | XMS REPORT ---
Author Author Debbi Salcido [facility] eClinicalWorks Address Unknown Phone Unavailable Care Team Providers Care Government Gauger Name Role Phone Debbi Salcido CP Unavailable Allergies No Known Allergies Problems Problem Type Condition Code Onset Dates Condition Status Problem Type 2 diabetes mellitus with other specified complication E11.69 Active Problem BPH (benign prostatic hyperplasia) N40.0 Active Problem Encounter for general adult medical examination without abnormal findings Z00.00 Active Problem Obesity (BMI 35.0-39.9 without comorbidity) E66.01 Active Problem Diabetes mellitus with neuropathy E11.40 Active Problem BMI 35.0-35.9,adult Z68.35 Active Problem Dysthymia F34.1 Active Problem DM eye manif type II E11.39 Active Problem 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 Active Problem Insomnia G47.00 Active Problem Depression of infancy to accountant bookkeeper, 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 Active Problem Benign hypertensive heart disease without congestive heart failure I11.9 Active Problem Balanitis N48.1 Active Problem Diabetic polyneuropathy associated with type 2 diabetes mellitus E11.42 Active Problem Cancer of body of penis C60.2 Active Problem Need for pneumococcal vaccination Z23 Active Problem Acute eye pain H57.10 Active Problem Acute pain of right knee M25.561 Active Problem 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 Problem Adjustment disorder with mixed anxiety and depressed mood F43.23 Active Problem Abrasion of right cornea, initial encounter S05.01XA Active Problem Other seasonal allergic rhinitis J30.2 Active Problem Body mass index (BMI) of 35.0-35.9 in adult Z68.35 Active Problem Chronic seasonal allergic rhinitis, unspecified trigger J30.2 Active Problem alf current use of insulin Z79.4 Active Problem Type 2 diabetes mellitus with diabetic neuropathy, unspecified E11.40 Active Problem 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.20 Active Problem 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 G99.0 Active Problem Diabetic neuropathy E11.40 Active Problem Acute nasopharyngitis J00 Active Problem Hypertension I10 Active Problem 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 Problem Hyperlipidemia E78.5 Active Problem Obesity E66.9 Active Problem History of melanoma Z85.820 Active Problem 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
--- OUTSIDE RECORDS SUMMARY | 2018-05-07 05:17 | XMS REPORT ---
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 Problem Diabetes mellitus with neuropathy E11.40 Active Problem BMI 35.0-35.9,adult Z68.35 Active Problem Diabetic neuropathy E11.40 Active Problem 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.20 Active Problem Hypertension I10 Active Problem Type 2 diabetes mellitus with other specified complication E11.69 Active Problem Hyperlipidemia E78.5 Active Problem Neoplasm of uncertain behavior of skin D48.5 Active Problem 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 G99.0 Active Problem Insomnia G47.00 Active Problem Depression of infancy to tandem operator, 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 Active Problem Polyneuropathy in diabetes E11.42 Active Problem Benign hypertensive heart disease without congestive heart failure I11.9 Active Problem Major 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, single episode, moderate F32.1 Active Problem Acute eye pain H57.10 Active Problem Acute pain of right knee M25.561 Active Problem Obesity E66.9 Active Problem Dysthymia F34.1 Active Problem Abrasion of right cornea, initial encounter S05.01XA Active Problem Adjustment disorder with mixed anxiety and depressed mood F43.23 Active Problem Need for pneumococcal vaccination Z23 Active Problem Diabetic polyneuropathy associated with type 2 diabetes mellitus E11.42 Active Problem Type 2 diabetes mellitus with diabetic neuropathy, unspecified E11.40 Active Problem nursing home current use of insulin Z79.4 Active Problem Encounter for general adult medical examination without abnormal findings Z00.00 Active Problem 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 Problem BPH (benign prostatic hyperplasia) N40.0 Active Problem 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 Assessment Other seasonal allergic rhinitis J30.2 Active Problem Balanitis N48.1 Active Assessment Abrasion of right cornea, initial encounter S05.01XA Active Problem Other seasonal allergic rhinitis J30.2 Active Problem Acute nasopharyngitis J00 Active Assessment Acute eye pain H57.10 Active Problem History of melanoma Z85.820 Active Problem DM eye manif type II E11.39 Active Problem 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 Active Medications Medication Code System Code Instructions Start Date End Date Status Dosage Tramadol HCl [facility][NOTE 3] [address]-98 50 MG Orally every 12 hrs Sep 26, 2016 Active 1 tablet as needed Trazodone HCl [facility][NOTE 3] 84051908435 50 MG Orally Once a day as needed for sleep Active 1-2 tablet at bedtime as needed Valdo Contour Test [facility][NOTE 3] [address]-28 0 Bottles In Vitro 3 times a day Oct 08, 2015 Active as directed NovoFine [facility][NOTE 3] [address]-06 30G X 8 MM SQ QID August 02, 2015 Active as directed Nortriptyline HCl [facility][NOTE 3] [address]-38 25 MG Orally Once a day Active 1 capsule Metformin HCl [facility][NOTE 3] [address]-44 1000 MG Orally Twice a day Active 1 tablet with meals Atorvastatin Calcium [facility][NOTE 3] 87113949947 40 MG Orally Once a day Active 1 tablet Azelastine HCl [facility][NOTE 3] [address]-87 0.1 % Nasally Twice a day Active 1 puff in each nostril Fluticasone Propionate [facility][NOTE 3] [address]-66 50 MCG/ACT Nasally Once a day Nov 04, 2016 Active 2 spray in each nostril NovoLog Flexpen [facility][NOTE 3] 24890698307 100 UNIT/ML Subcutaneous tid with meals Active as directed Tresiba FlexTouch [facility][NOTE 3] [address]-58 200 UNIT/ML Subcutaneous once a day Feb 07, 2016 Active 80 units Lisinopril-Hydrochlorothiazide [facility][NOTE 3] [address]-28 20-25 MG Orally Once a day Active 1 tablet Vital Signs Date/Time: Nov 04, 2016 BMI 35.52 Index Weight 195.8 lbs Height 62.25 in Cardiac Monitoring Heart Rate 86 /min Blood Pressure Diastolic 83 mm Hg Blood Pressure Systolic 138 mm Hg Results No Known Results Summary Purpose eClinicalWorks Submission
--- OUTSIDE RECORDS SUMMARY | 2018-05-07 05:17 | XMS REPORT ---
Author Author Debbi Salcido [facility] eClinicalWorks Address Unknown Phone Unavailable Care Team Providers Care Interpreter Deaf Name Role Phone Debbi Salcido Unavailable Allergies No Known Allergies Problems Problem Type Condition Code Onset Dates Condition Status Problem Encounter for general adult medical examination without abnormal findings Z00.00 Active Problem Obesity (BMI 35.0-39.9 without comorbidity) E66.01 Active Problem BMI 35.0-35.9,adult Z68.35 Active Problem Diabetes mellitus with neuropathy E11.40 Active Problem Dysthymia F34.1 Active Problem DM eye manif type II E11.39 Active Problem 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 Active Problem Depression of infancy to early childhood associate, 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 Active Problem Balanitis N48.1 Active Problem Diabetic polyneuropathy associated with type 2 diabetes mellitus E11.42 Active Problem Other seasonal allergic rhinitis J30.2 Active Problem Need for pneumococcal vaccination Z23 Active Problem Adjustment disorder with mixed anxiety and depressed mood F43.23 Active Problem Cancer of body of penis C60.2 Active Problem Body mass index (BMI) of 35.0-35.9 in adult Z68.35 Active Problem Chronic seasonal allergic rhinitis, unspecified trigger J30.2 Active Problem Allergic conjunctivitis of both eyes H10.13 Active Problem Abrasion of right cornea, initial encounter S05.01XA Active Problem Obesity E66.9 Active Problem 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 Problem 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 Problem BMI 36.0-36.9,adult Z68.36 Active Problem 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 Problem buttermaker continuous churn current use of insulin Z79.4 Active Problem Type 2 diabetes mellitus with diabetic neuropathy, unspecified E11.40 Active Problem Acute eye pain H57.10 Active Problem Acute pain of right knee M25.561 Active Problem BPH (benign prostatic hyperplasia) N40.0 Active Problem Neoplasm of uncertain behavior of skin D48.5 Active Problem Type 2 diabetes mellitus with other specified complication E11.69 Active Problem Major 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, single episode, moderate F32.1 Active Problem 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.20 Active Problem 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 G99.0 Active Problem Diabetic neuropathy E11.40 Active Problem Acute nasopharyngitis J00 Active Problem Hypertension I10 Active Problem Insomnia G47.00 Active Problem Hyperlipidemia E78.5 Active Problem Benign hypertensive heart disease without congestive heart failure I11.9 Active Problem History of melanoma Z85.820 Active Problem Polyneuropathy in diabetes E11.42 Active Medications Medication Code System Code Instructions Start Date End Date Status D[id number] 0.75 mg/0.5 mL Subcutaneous Once a week June 10, 2017 Dec 07, 2017 Active 0.5 mL Results No Known Results Summary Purpose eClinicalWorks Submission
--- OUTSIDE RECORDS SUMMARY | 2018-05-07 05:17 | XMS REPORT ---
Author Author Debbi Salcido [facility] eClinicalWorks Address Unknown Phone Unavailable Care Team Providers Care Surveyor Rod Helper Name Role Phone Debbi Salcido CP Unavailable Allergies No Known Allergies Problems Problem Type Condition Code Onset Dates Condition Status Problem Other seasonal allergic rhinitis J30.2 Active Problem 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 Problem 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 G99.0 Active Problem Obesity E66.9 Active Problem Dysthymia F34.1 Active Problem Acute nasopharyngitis J00 Active Problem Major 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, single episode, moderate F32.1 Active Problem Neoplasm of uncertain behavior of skin D48.5 Active Problem Polyneuropathy in diabetes E11.42 Active Problem Insomnia G47.00 Active Problem History of melanoma Z85.820 Active Problem Need for pneumococcal vaccination Z23 Active Problem Benign hypertensive heart disease without congestive heart failure I11.9 Active Problem Diabetic polyneuropathy associated with type 2 diabetes mellitus E11.42 Active Problem Body mass index (BMI) of 35.0-35.9 in adult Z68.35 Active Problem Type 2 diabetes mellitus with diabetic neuropathy, unspecified E11.40 Active Problem Chronic seasonal allergic rhinitis, unspecified trigger J30.2 Active Problem Cancer of body of penis C60.2 Active Problem Acute eye pain H57.10 Active Problem Abrasion of right cornea, initial encounter S05.01XA Active Problem 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 accountant current use of insulin Z79.4 Active Problem Acute pain of right knee M25.561 Active Problem Hyperlipidemia E78.5 Active Problem Hypertension I10 Active Problem 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.20 Active Problem Diabetic neuropathy E11.40 Active Problem BPH (benign prostatic hyperplasia) N40.0 Active Problem BMI 36.0-36.9,adult Z68.36 Active Problem 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 Problem Allergic conjunctivitis of both eyes H10.13 Active Problem Acute bilateral low back pain without sciatica M54.5 Active Problem Constipation, unspecified K59.00 Active Problem Possible urinary tract infection R39.89 Active Problem Routine general medical examination at a health care facility Z00.00 Active Problem Leukocytosis, unspecified D72.829 Active Problem Hypertensive heart disease without heart failure I11.9 Active Problem Diabetes mellitus with neuropathy E11.40 Active Problem Body mass index (BMI) of 34.0-34.9 in adult Z68.34 Active Problem BMI 35.0-35.9,adult Z68.35 Active Problem Body mass index (BMI) of 36.0-36.9 in adult Z68.36 Active Problem Encounter for general adult medical examination without abnormal findings Z00.00 Active Problem Chronic sinusitis of both maxillary sinuses J32.0 Active Problem Obesity (BMI 35.0-39.9 without comorbidity) E66.01 Active Problem Uncontrolled type 2 diabetes mellitus with hyperglycemia E11.65 Active Problem Type 2 diabetes mellitus with other specified complication E11.69 Active Problem DM eye manif type II E11.39 Active Problem 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 89391243439 [address]14 UNIT Orally once a week Mar 08, 2018 Apr 07, 2018 Active 1 capsule Results No Known Results Summary Purpose eClinicalWorks Submission
--- OUTSIDE RECORDS SUMMARY | 2018-05-07 05:17 | XMS REPORT ---
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 80696153292 100 UNIT/ML Subcutaneous tid with meals Active 10 units Results No Known Results Summary Purpose eClinicalWorks Submission
--- OUTSIDE RECORDS SUMMARY | 2018-05-07 05:17 | XMS REPORT ---
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 Assessment Hyperlipidemia E78.5 Active Problem [facility] current use of insulin Z79.4 Active Assessment Type 2 diabetes mellitus with other specified complication E11.69 Active Problem Type 2 diabetes mellitus with diabetic neuropathy, unspecified E11.40 Active Assessment Benign hypertensive heart disease without congestive heart failure I11.9 Active Problem Acute eye pain H57.10 Active Assessment Chronic seasonal allergic rhinitis, unspecified trigger J30.2 Active Problem Acute pain of right knee [...] Instructions Start Date End Date Status Dosage NovoFine [facility] [id number] 30G X 8 MM SQ QID August 02, 2015 Active as directed Fluticasone Propionate [facility] 52353572003 50 MCG/ACT Active INSTILL 2 SPRAY IN EACH NOSTRIL ONCE A DAY NASALLY 30 DAY(S) NovoLog Flexpen [place] 93916012193 100 UNIT/ML Subcutaneous tid with meals Active 50 units OneTouch Verio Flex System [facility] 78690595328 w/Device SQ QAC Mar 04, 2017 Active as directed Victoza [facility] 08038323025 18 MG/3ML Subcutaneous once a day Mar 03, 2017 Active 1.2 mg Valdo Contour Test [facility] 56928490219 0 Bottles In Vitro 3 times a day Oct 08, 2015 Active as directed Metformin HCl [facility] 95138976438 1000 MG Orally Twice a day Active take 1 tablet with meals twice a day orally 90 days Tresiba FlexTouch [facility] 76055428397 200 UNIT/ML Subcutaneous once a day Active 80 units Nortriptyline HCl [facility] 07245979100 50 MG Orally Once a day Active 1 capsule at bedtime Olopatadine HCl [facility] 13056741113 0.2 % Ophthalmic Once a day June 02, 2017 Active as directed Azelastine HCl [facility] 50381962140 0.1 % Nasally Twice a day Active 1 puff in each nostril OneTouch Verio [facility] 14481695232 - In Vitro QAC Mar 04, 2017 Active as directed Lisinopril-Hydrochlorothiazide [facility] 58208539797 20-25 MG Orally Once a day Active take 1 tablet once a day orally 90 days Tramadol HCl [facility] 76592585135 50 MG Orally every 12 hrs Sep 26, 2016 Active 1 tablet as needed Valdo Contour Next Test [facility] 21253092054 - Active USE DIRECTED 3 TIMES A DAY Atorvastatin Calcium [facility] 93020238683 40 MG Orally Once a day Active 1 tablet Vital Signs Date/Time: June 02, 2017 BMI 36.17 Index Weight 199.4 lbs Height 62.25 in Cardiac Monitoring Heart Rate 89 /min Blood Pressure Diastolic 80 mm Hg Blood Pressure Systolic 144 mm Hg Results No Known Results Summary Purpose eClinicalWorks Submission
--- OUTSIDE RECORDS SUMMARY | 2018-05-07 05:17 | XMS REPORT ---
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 Problem Adjustment disorder with mixed anxiety and depressed mood F43.23 Active Problem Other seasonal allergic rhinitis J30.2 Active Problem 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 G99.0 Active Problem Acute nasopharyngitis J00 Active Problem 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 Problem Obesity E66.9 Active Problem History of melanoma Z85.820 Active Problem Polyneuropathy in diabetes E11.42 Active Problem Neoplasm of uncertain behavior of skin D48.5 Active Problem Major 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, single episode, moderate F32.1 Active Assessment Major 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, single episode, moderate F32.1 Active Assessment Other seasonal allergic rhinitis J30.2 Active Assessment Chronic seasonal allergic rhinitis, unspecified trigger J30.2 Active Assessment History of melanoma Z85.820 Active Assessment Neoplasm of uncertain behavior of skin D48.5 Active Assessment Acute pain of right knee M25.561 Active Assessment detention current use of insulin Z79.4 Active Assessment 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 Assessment DM eye manif type II E11.39 Active Assessment BPH (benign prostatic hyperplasia) N40.0 Active Assessment 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35 Active Assessment Hyperlipidemia E78.5 Active Problem Chronic seasonal allergic rhinitis, unspecified trigger J30.2 Active Assessment Type 2 diabetes mellitus with other specified complication E11.69 Active Problem detention current use of insulin Z79.4 Active Assessment Diabetic neuropathy E11.40 Active Problem Type 2 diabetes mellitus with diabetic neuropathy, unspecified E11.40 Active Assessment 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.20 Active Problem 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.20 Active Problem Diabetic neuropathy E11.40 Active Problem Hypertension I10 Active Problem Hyperlipidemia E78.5 Active Assessment Encounter for general adult medical examination without abnormal findings Z00.00 Active Problem 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 Medications Medication Code System Code Instructions Start Date End Date Status Dosage Atorvastatin Calcium [facility] 34594652310 40 MG Orally Once a day Active 1 tablet Valdo Contour Test [facility] 71187080898 0 Bottles In Vitro 3 times a day Oct 08, 2015 Active as directed Fluticasone Propionate ND 04786455085 50 MCG/ACT Nasally Once a day Nov 04, 2016 Active 2 spray in each nostril Tresiba FlexTouch ND 78031641926 200 UNIT/ML Subcutaneous once a day Feb 07, 2016 Active 80 units Valdo Contour Next Test [facility] 25475760386 - Active USE DIRECTED 3 TIMES A DAY Nortriptyline HCl [facility] 30235739188 50 MG Orally Once a day Active 1 capsule at bedtime Trazodone HCl [facility] 78416841136 50 MG Once at bedtime Mar 03, 2017 Inactive 1 tablet at bedtime Azelastine HCl [facility] 49506251746 0.1 % Nasally Twice a day Active 1 puff in each nostril Metformin HCl [facility] 88250134201 1000 MG Orally Twice a day Active take 1 tablet with meals twice a day orally 90 days NovoLog Flexpen [facility] 85340818583 100 UNIT/ML Subcutaneous tid with meals Active as directed Lisinopril-Hydrochlorothiazide [facility] 14869553144 20-25 MG Orally Once a day Active 1 tablet OneTouch Verio [facility] 38125693687 - In Vitro QAC Mar 04, 2017 Active as directed Victoza [facility] 46514333552 18 MG/3ML Subcutaneous once a day Mar 03, 2017 August 30, 2017 Active 1.2 mg OneTouch Verio Flex System [facility] 75280708597 w/Device SQ QAC Mar 04, 2017 Active as directed NovoFine [facility] 32180127425 30G X 8 MM SQ QID August 02, 2015 Active as directed Tramadol HCl [facility] 42446002228 50 MG Orally every 12 hrs Sep 26, 2016 Active 1 tablet as needed Vital Signs Date/Time: Mar 03, 2017 BMI 35.38 Index Weight 195.0 lbs Height 62.25 in Cardiac Monitoring Heart Rate 75 /min Blood Pressure Diastolic 80 mm Hg Blood Pressure Systolic 144 mm Hg Results No Known Results Summary Purpose eClinicalWorks Submission
--- OUTSIDE RECORDS SUMMARY | 2018-05-07 05:17 | XMS REPORT ---
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 Active Problem Adjustment disorder [...] Problem Other seasonal allergic rhinitis J30.2 Active Assessment Other seasonal allergic rhinitis J30.2 Active Problem Abrasion of right cornea, initial encounter S05.01XA Active Problem Balanitis N48.1 Active Assessment Hyperlipidemia E78.5 Active Problem Body mass index (BMI) of 35.0-35.9 in adult Z68.35 Active Assessment Type 2 diabetes mellitus with other specified complication E11.69 Active Problem Cancer of body of penis C60.2 Active Assessment 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.20 Active Problem Type 2 diabetes mellitus with diabetic neuropathy, unspecified E11.40 Active Assessment Obesity (BMI 35.0-39.9 without comorbidity) E66.01 Active Problem 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 inspector current 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 of insulin Z79.4 Active Problem Obesity (BMI 35.0-39.9 without comorbidity) E66.01 Active Problem 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 Active Problem BMI 35.0-35.9,adult Z68.35 Active Problem Acute nasopharyngitis J00 Active Problem BPH (benign prostatic hyperplasia) N40.0 Active Problem 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 Problem 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 Problem DM eye manif type II E11.39 Active Assessment Hypertension I10 Active Problem Insomnia G47.00 Active Problem Encounter for general adult medical examination without abnormal findings Z00.00 Active Problem Polyneuropathy in diabetes E11.42 Active Problem History of melanoma Z85.820 Active Problem Neoplasm of uncertain behavior of skin D48.5 Active Medications Medication Code System Code Instructions Start Date End Date Status Dosage Metformin HCl [facility] [address]-81 1000 MG Orally Twice a day Active 1 tablet with meals Tramadol HCl [facility] [address]-11 50 MG Orally every 12 hrs Sep 26, 2016 Active 1 tablet as needed Atorvastatin Calcium [facility] 83955846553 40 MG Orally Once a day Active 1 tablet Trazodone HCl [facility] 13248973576 50 MG Orally Once a day as needed for sleep Active 1-2 tablet at bedtime as needed Valdo Contour Test [facility] [address]-35 0 Bottles In Vitro 3 times a day Oct 08, 2015 Active as directed NovoLog Flexpen [facility] 21474098301 100 UNIT/ML Subcutaneous tid with meals Active 15-18 units Nortriptyline HCl [facility] [address]-92 25 MG Orally Once a day Active 1 capsule Lisinopril-Hydrochlorothiazide [facility] [address]-00 20-25 MG Orally Once a day Active 1 tablet Fluticasone Propionate [facility] [address]-18 50 MCG/ACT Nasally Once a day Nov 04, 2016 Active 2 spray in each nostril Azelastine HCl [facility] [address]-62 0.1 % Nasally Twice a day Active 1 puff in each nostril NovoFine [facility] [address]-63 30G X 8 MM SQ QID August 02, 2015 Active as directed Tresiba FlexTouch [facility] [address]-61 200 UNIT/ML Subcutaneous once a day Feb 07, 2016 Active 80 units Vital Signs Date/Time: Dec 01, 2016 BMI 35.59 Index Weight 196.2 lbs Height 62.25 in Cardiac Monitoring Heart Rate 84 /min Blood Pressure Diastolic 75 mm Hg Blood Pressure Systolic 135 mm Hg Results No Known Results Summary Purpose eClinicalWorks Submission
--- OUTSIDE RECORDS SUMMARY | 2018-05-07 05:18 | XMS REPORT ---
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
--- OUTSIDE RECORDS SUMMARY | 2018-05-07 05:18 | XMS REPORT ---
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
--- OUTSIDE RECORDS SUMMARY | 2018-05-07 05:18 | XMS REPORT ---
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 Active Problem 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 Active Problem Adjustment disorder with mixed anxiety and depressed mood F43.23 Active Problem Other seasonal allergic rhinitis J30.2 Active Problem DM eye manif type II E11.39 Active Problem Dysthymia F34.1 Active Problem 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 Problem 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 Problem Obesity E66.9 Active Problem Balanitis N48.1 Active Problem 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 G99.0 Active Problem Major 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, single episode, moderate F32.1 Active Problem Neoplasm of uncertain behavior of skin D48.5 Active Problem Acute nasopharyngitis J00 Active Problem Insomnia G47.00 Active Problem Benign hypertensive heart disease without congestive heart failure I11.9 Active Problem History of melanoma Z85.820 Active Problem Polyneuropathy in diabetes E11.42 Active Problem Chronic seasonal allergic rhinitis, unspecified trigger J30.2 Active Problem Cancer of body of penis C60.2 Active Problem Diabetic polyneuropathy associated with type 2 diabetes mellitus E11.42 Active Problem Need for pneumococcal vaccination Z23 Active Assessment Constipation, unspecified K59.00 Active Assessment Possible urinary tract infection R39.89 Active Assessment Body mass index (BMI) of 36.0-36.9 in adult Z68.36 Active Assessment Acute bilateral low back pain without sciatica M54.5 Active Problem Body mass index (BMI) of 35.0-35.9 in adult Z68.35 Active Problem Type 2 diabetes mellitus with diabetic neuropathy, unspecified E11.40 Active Problem senior care current use of insulin Z79.4 Active Problem Acute eye pain H57.10 Active Problem Acute pain of right knee M25.561 Active Problem Body mass index (BMI) of 36.0-36.9 in adult Z68.36 Active Problem Acute bilateral low back pain without sciatica M54.5 Active Problem Constipation, unspecified K59.00 Active Problem Obesity (BMI 35.0-39.9 without comorbidity) E66.01 Active Problem BMI 36.0-36.9,adult Z68.36 Active Problem 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.20 Active Problem Abrasion of right cornea, initial encounter S05.01XA Active Problem Hyperlipidemia E78.5 Active Problem Possible urinary tract infection R39.89 Active Problem Hypertension I10 Active Problem Allergic conjunctivitis of both eyes H10.13 Active Problem 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 Problem Diabetes mellitus with neuropathy E11.40 Active Problem BMI 35.0-35.9,adult Z68.35 Active Problem BPH (benign prostatic hyperplasia) N40.0 Active Problem Type 2 diabetes mellitus with other specified complication E11.69 Active Problem Encounter for general adult medical examination without abnormal findings Z00.00 Active Problem Diabetic neuropathy E11.40 Active Medications Medication Code System Code Instructions Start Date End Date Status Dosage Valdo Contour Test [facility] 99816026550 0 Bottles In Vitro 3 times a day Oct 08, 2015 Active as directed NovoFine [facility] 88702993750 30G X 8 MM SQ QID August 02, 2015 Active as directed Nortriptyline HCl [facility] 24007419859 50 MG Orally Once a day Active 1 capsule at bedtime Azelastine HCl [facility] 89608464867 0.1 % Nasally Twice a day Active 1 puff in each nostril Lisinopril-Hydrochlorothiazide [facility] 37947077934 20-25 MG Orally Once a day Active take 1 tablet once a day orally 90 days NovoLog Flexpen [facility] 02303983164 100 UNIT/ML Subcutaneous tid with meals Active 50 units Tramadol HCl [facility] 50896080781 50 MG Orally every 12 hrs Sep 26, 2016 Active 1 tablet as needed Metformin HCl [facility] 07090194561 1000 MG Orally Twice a day Active take 1 tablet with meals twice a day orally 90 days Fluticasone Propionate [facility] 92417907403 50 MCG/ACT Active INSTILL 2 SPRAY IN EACH NOSTRIL ONCE A DAY NASALLY 30 DAY(S) MiraLax [facility] 79972304281 - Orally July 27, 2017 Active as directed Trulicity [facility] 17706982351 0.75 mg/0.5 mL Subcutaneous Once a week June 10, 2017 Active 0.5 mL Victoza [facility] 03464797512 18 MG/3ML Subcutaneous once a day Mar 03, 2017 Active 1.2 mg Atorvastatin Calcium [facility] 03679280801 40 MG Orally Once a day Active 1 tablet Valdo Contour Next Test [facility] 74548744209 - Active USE DIRECTED 3 TIMES A DAY Cipro [facility] 26639525807 250 MG Orally every 12 hrs July 27, 2017 August 01, 2017 Active 1 tablet Tresiba FlexTouch [facility] 64707997383 200 UNIT/ML Subcutaneous once a day Active 80 units Lactulose [facility] 04655508795 20 GM/30ML Orally Once a day July 27, 2017 Sep 25, 2017 Active 15 ml saperatecTouch Verio Flex System [facility] 08650831894 w/Device SQ QAC Mar 04, 2017 Active as directed OneTouch Verio [facility] 91194443198 - In Vitro QAC Mar 04, 2017 Active as directed Olopatadine HCl [facility] 34689001882 0.2 % Ophthalmic Once a day June 02, 2017 Active as directed Vital Signs Date/Time: July 27, 2017 BMI 36.03 Index Weight 198.6 lbs Height 62.25 in Cardiac Monitoring Heart Rate 87 /min Blood Pressure Diastolic 85 mm Hg Blood Pressure Systolic 138 mm Hg Results No Known Results Summary Purpose eClinicalWorks Submission
--- OUTSIDE RECORDS SUMMARY | 2018-05-07 05:18 | XMS REPORT ---
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 Active Problem 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 Active Problem Adjustment disorder with mixed anxiety and depressed mood F43.23 Active Problem Other seasonal allergic rhinitis J30.2 Active Problem DM eye manif type II E11.39 Active Problem Dysthymia F34.1 Active Assessment Type 2 diabetes mellitus with other specified complication E11.69 Active Problem 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 Problem 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 Problem Obesity E66.9 Active Problem Body mass index (BMI) of 35.0-35.9 in adult Z68.35 Active Problem Balanitis N48.1 Active Problem Type 2 diabetes mellitus with diabetic neuropathy, unspecified E11.40 Active Problem 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 G99.0 Active Problem 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 Z79.4 Active Problem Acute eye pain H57.10 Active Problem Acute pain of right knee M25.561 Active Problem Body mass index (BMI) of 36.0-36.9 in adult Z68.36 Active Problem Acute bilateral low back pain without sciatica M54.5 Active Problem Major 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, single episode, moderate F32.1 Active Problem Neoplasm of uncertain behavior of skin D48.5 Active Problem Obesity (BMI 35.0-39.9 without comorbidity) E66.01 Active Problem Constipation, unspecified K59.00 Active Problem Acute nasopharyngitis J00 Active Problem 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.20 Active Problem BMI 36.0-36.9,adult Z68.36 Active Problem Hyperlipidemia E78.5 Active Problem Abrasion of right cornea, initial encounter S05.01XA Active Problem Hypertension I10 Active Problem Possible urinary tract infection R39.89 Active Problem 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 Problem Allergic conjunctivitis of both eyes H10.13 Active Problem Diabetes mellitus with neuropathy E11.40 Active Problem Insomnia G47.00 Active Problem BMI 35.0-35.9,adult Z68.35 Active Problem Benign hypertensive heart disease without congestive heart failure I11.9 Active Problem BPH (benign prostatic hyperplasia) N40.0 Active Problem History of melanoma Z85.820 Active Problem Type 2 diabetes mellitus with other specified complication E11.69 Active Problem Polyneuropathy in diabetes E11.42 Active Problem Encounter for general adult medical examination without abnormal findings Z00.00 Active Problem Chronic seasonal allergic rhinitis, unspecified trigger J30.2 Active Problem Diabetic neuropathy E11.40 Active Problem Cancer of body of penis C60.2 Active Problem Diabetic polyneuropathy associated with type 2 diabetes mellitus E11.42 Active Problem Need for pneumococcal vaccination Z23 Active Medications Medication Code System Code Instructions Start Date End Date Status Dosage Tresiba FlexTouch [facility] 39087318238 200 UNIT/ML Subcutaneous once a day Active 85 units Zetia [facility] 67261883513 10 MG Orally Once a day September 04, 2017 Active 1 tablet Results No Known Results Summary Purpose eClinicalWorks Submission
--- OUTSIDE RECORDS SUMMARY | 2018-05-07 05:18 | XMS REPORT ---
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 Active Problem Tinnitus of [...] Need for pneumococcal vaccination Z23 Active Assessment Polyneuropathy in diabetes E11.42 Active Assessment Constipation, unspecified K59.00 Active Assessment BMI 35.0-35.9,adult Z68.35 Active Assessment Type 2 diabetes mellitus with other specified complication E11.69 Active Assessment Hyperlipidemia E78.5 Active Assessment Hypertension I10 Active Problem Body mass index (BMI) of 35.0-35.9 in adult Z68.35 Active Assessment BPH (benign prostatic hyperplasia) N40.0 Active Problem Type 2 diabetes mellitus with diabetic neuropathy, unspecified E11.40 Active Problem jail current use of insulin Z79.4 Active Problem [...] Date End Date Status Dosage NovoLog Flexpen [facility] 55805801424 100 UNIT/ML Subcutaneous tid with meals Active 50 units Tresiba FlexTouch [facility] 99468210531 200 UNIT/ML Subcutaneous once a day Active 80 units Metformin HCl [facility] 63281326126 1000 MG Orally Twice a day Active take 1 tablet with meals twice a day orally 90 days Trulicity [facility] 90003487534 0.75 mg/0.5 mL Subcutaneous Once a week June 10, 2017 Active 0.5 mL Azelastine HCl [facility] 86969793614 0.1 % Nasally Twice a day Active 1 puff in each nostril Valdo Contour Next Test ND 27125267430 - Active USE DIRECTED 3 TIMES A DAY Victoza [facility] 15461602057 18 MG/3ML Subcutaneous not taking Mar 03, 2017 September 01, 2017 Inactive 1.2 mg Olopatadine HCl [facility] 89887574442 0.2 % Ophthalmic Once a day June 02, 2017 Active as directed MiraLax [facility] 48809721692 - Orally Active as directed OneTouch Verio Flex System [facility] 01967243405 w/Device SQ QAC Mar 04, 2017 Active as directed Fluticasone Propionate [facility] 04943242832 50 MCG/ACT prn Active INSTILL 2 SPRAY IN EACH NOSTRIL ONCE A DAY NASALLY 30 DAY(S) Tramadol HCl [facility] 37715355350 50 MG Orally every 12 hrs Sep 26, 2016 Active 1 tablet as needed Lactulose [facility] 34119097800 20 GM/30ML Orally Once a day July 27, 2017 September 01, 2017 Inactive 15 ml Nortriptyline HCl [facility] 15010133251 50 MG once a day Active TAKE 1 CAPSULE AT BEDTIME ONCE A DAY ORALLY 90 DAYS MiraLax [facility] 93968584529 - Orally July 27, 2017 Active as directed Valdo Contour Test [facility] 82037259985 0 Bottles In Vitro 3 times a day Oct 08, 2015 Active as directed OneTouch Verio [facility] 74183405967 - In Vitro QAC Mar 04, 2017 Active as directed Lisinopril-Hydrochlorothiazide [facility] 92152013901 20-25 MG Orally Once a day Active take 1 tablet once a day orally 90 days Atorvastatin Calcium [facility] 80308421791 40 MG once a day Active TAKE 1 TABLET ONCE A DAY ORALLY 90 DAYS NovoFine [facility] 31575007096 30G X 8 MM SQ QID August 02, 2015 Active as directed Vital Signs Date/Time: September 01, 2017 BMI 35.78 Index Weight 197.2 lbs Height 62.25 in Cardiac Monitoring Heart Rate 87 /min Blood Pressure Diastolic 79 mm Hg Blood Pressure Systolic 143 mm Hg Results No Known Results Summary Purpose eClinicalWorks Submission
--- OUTSIDE RECORDS SUMMARY | 2018-05-07 05:18 | XMS REPORT ---
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
--- OUTSIDE RECORDS SUMMARY | 2018-05-07 05:18 | XMS REPORT ---
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 Active Problem DM eye manif type II E11.39 Active Problem Adjustment disorder with mixed anxiety and depressed mood F43.23 Active Problem Dysthymia F34.1 Active Problem 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 Problem 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 Problem Obesity E66.9 Active Problem Balanitis N48.1 Active Problem 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 G99.0 Active Problem Acute nasopharyngitis J00 Active Problem History of melanoma Z85.820 Active Problem Major 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, single episode, moderate F32.1 Active Problem Neoplasm of uncertain behavior of skin D48.5 Active Problem Benign hypertensive heart disease without congestive heart failure I11.9 Active Problem Diabetic polyneuropathy associated with type 2 diabetes mellitus E11.42 Active Problem Polyneuropathy in diabetes E11.42 Active Problem Insomnia G47.00 Active Problem Cancer of body of penis C60.2 Active Problem Body mass index (BMI) of 35.0-35.9 in adult Z68.35 Active Problem Need for pneumococcal vaccination Z23 Active Problem Chronic seasonal allergic rhinitis, unspecified trigger J30.2 Active Assessment Uncontrolled type 2 diabetes mellitus with hyperglycemia E11.65 Active Assessment Obesity (BMI 35.0-39.9 without comorbidity) E66.01 Active Assessment Diabetic neuropathy E11.40 Active Problem 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0-36.9,adult Z68.36 Active Problem Obesity (BMI 35.0-39.9 without comorbidity) E66.01 Active Problem Allergic conjunctivitis of both eyes H10.13 Active Problem 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.20 Active Problem Constipation, unspecified K59.00 Active Problem Hyperlipidemia E78.5 Active Problem Body mass index (BMI) of 36.0-36.9 in adult Z68.36 Active Problem Hypertension I10 Active Problem BMI 35.0-35.9,adult Z68.35 Active Problem 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 Active Problem Type 2 diabetes mellitus with other specified complication E11.69 Active Problem Diabetes mellitus with neuropathy E11.40 Active Problem Diabetic neuropathy E11.40 Active Problem BPH (benign prostatic hyperplasia) N40.0 Active Medications Medication Code System Code Instructions Start Date End Date Status Dosage Valdo Contour Next Test [facility] 01675383286 - Active USE DIRECTED 3 TIMES A DAY OneTouch Verio [facility] 65998526360 - In Vitro QAC Mar 04, 2017 Active as directed Azelastine HCl [facility] 75442661280 0.1 % Nasally Twice a day Active 1 puff in each nostril Atorvastatin Calcium ND 71988654613 40 MG once a day Active TAKE 1 TABLET ONCE A DAY ORALLY 90 DAYS NovoLog Flexpen [facility] 06440888618 100 UNIT/ML Subcutaneous tid with meals Active 50 units NovoFine [facility] 86506466780 30G X 8 MM SQ QID August 02, 2015 Active as directed Tresiba FlexTouch [facility] 01917228260 200 UNIT/ML Subcutaneous once a day Active 80 units Fluticasone Propionate [facility] 20308091433 50 MCG/ACT prn Active INSTILL 2 SPRAY IN EACH NOSTRIL ONCE A DAY NASALLY 30 DAY(S) Gabapentin ND 13858449626 300 MG Orally Once a day Oct 19, 2017 Active 1 capsule before bedtime Zetia ND 39777342200 10 MG Orally Once a day September 04, 2017 Active 1 tablet MiraLax [facility] 60344013060 - Orally Active as directed Trulicity [facility] 93074021903 0.75 mg/0.5 mL Subcutaneous Once a week June 10, 2017 Active 0.5 mL Tramadol HCl [facility] 99791851682 50 MG Orally every 12 hrs Sep 26, 2016 Active 1 tablet as needed Valdo Contour Test [facility] 89356328862 0 Bottles In Vitro 3 times a day Oct 08, 2015 Active as directed Metformin HCl [facility] 48163739883 1000 MG Orally Twice a day Active take 1 tablet with meals twice a day orally 90 days Lisinopril-Hydrochlorothiazide [facility] 64075910690 20-25 MG Active TAKE 1 TABLET ONCE A DAY ORALLY 90 DAYS OneTouch Verio Flex System [facility] 19554842907 w/Device SQ QAC Mar 04, 2017 Active as directed Olopatadine HCl [facility] 64050381867 0.2 % Ophthalmic Once a day June 02, 2017 Active as directed Nortriptyline HCl [facility] 80307186497 50 MG once a day Active TAKE 1 CAPSULE AT BEDTIME ONCE A DAY ORALLY 90 DAYS Vital Signs Date/Time: Oct 19, 2017 BMI 35.74 Index Weight 197.0 lbs Height 62.25 in Cardiac Monitoring Heart Rate 94 /min Blood Pressure Diastolic 83 mm Hg Blood Pressure Systolic 145 mm Hg Results No Known Results Summary Purpose eClinicalWorks Submission
--- OUTSIDE RECORDS SUMMARY | 2018-05-07 05:18 | XMS REPORT ---
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 Problem Obesity E66.9 Active Problem Balanitis N48.1 Active Problem 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 G99.0 Active Problem Acute nasopharyngitis J00 Active Problem Neoplasm of uncertain behavior of skin D48.5 Active Problem Major 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, single episode, moderate F32.1 Active Problem History of melanoma Z85.820 Active Problem Benign hypertensive heart disease without congestive heart failure I11.9 Active Problem Insomnia G47.00 Active Problem Polyneuropathy in diabetes E11.42 Active Problem Chronic seasonal allergic rhinitis, unspecified trigger J30.2 Active Problem Cancer of body of penis C60.2 Active Problem Diabetic polyneuropathy associated with type 2 diabetes mellitus E11.42 Active Problem Need for pneumococcal vaccination Z23 Active Problem 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 Active Problem Acute pain of right knee M25.561 Active Problem Body mass index (BMI) of 35.0-35.9 in adult Z68.35 Active Problem Type 2 diabetes mellitus with diabetic neuropathy, unspecified E11.40 Active Assessment Hypertension I10 Active Assessment Diabetic neuropathy E11.40 Active Assessment Chronic sinusitis of both maxillary sinuses J32.0 Active Assessment BMI 35.0-35.9,adult Z68.35 Active Assessment Leukocytosis, unspecified D72.829 Active Problem 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 Problem Hypertension I10 Active Problem Hyperlipidemia E78.5 Active Problem 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.20 Active Problem Acute eye pain H57.10 Active Problem Abrasion of right cornea, initial encounter S05.01XA Active Problem BMI 36.0-36.9,adult Z68.36 Active Problem Possible urinary tract infection R39.89 Active Problem Allergic conjunctivitis of both eyes H10.13 Active Problem Chronic sinusitis of both maxillary sinuses J32.0 Active Problem Uncontrolled type 2 diabetes mellitus with hyperglycemia E11.65 Active Problem Leukocytosis, unspecified D72.829 Active Problem Type 2 diabetes mellitus with other specified complication E11.69 Active Problem Constipation, unspecified K59.00 Active Problem BPH (benign prostatic hyperplasia) N40.0 Active Problem Acute bilateral low back pain without sciatica M54.5 Active Problem Diabetic neuropathy E11.40 Active Problem Body mass index (BMI) of 34.0-34.9 in adult Z68.34 Active Problem Encounter for general adult medical examination without abnormal findings Z00.00 Active Problem Body mass index (BMI) of 36.0-36.9 in adult Z68.36 Active Problem Obesity (BMI 35.0-39.9 without comorbidity) E66.01 Active Problem Other seasonal allergic rhinitis J30.2 Active Problem Adjustment disorder with mixed anxiety and depressed mood F43.23 Active Problem 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 Active Problem 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, 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 Active Problem Diabetes mellitus with neuropathy E11.40 Active Problem BMI 35.0-35.9,adult Z68.35 Active Medications Medication Code System Code Instructions Start Date End Date Status Dosage MiraLax [facility] 35219884819 - Orally Active as directed Valdo Contour Next Test [facility] 04143828024 - Active USE DIRECTED 3 TIMES A DAY Azelastine HCl [facility] 71764077213 0.1 % Nasally Twice a day Active 1 puff in each nostril Nortriptyline HCl [facility] 02595953933 50 MG orally once a day Active 1 capsule NovoFine [facility] 43575977794 30G X 8 MM SQ QID August 02, 2015 Active as directed OneTouch Verio [facility] 51237939388 - In Vitro QAC Active as directed Tramadol HCl [facility] 53582854604 50 MG Orally every 12 hrs Sep 26, 2016 Active 1 tablet as needed Tresiba FlexTouch [facility] 55243315389 200 UNIT/ML Subcutaneous once a day Active 85 units NovoLog Flexpen [facility] 75472079388 100 UNIT/ML Subcutaneous tid with meals Active 50 units Gabapentin [facility] 57402060030 300 MG Orally Twice a day Oct 19, 2017 Active 1 capsule before bedtime Fluticasone Propionate [facility] 41694973878 50 MCG/ACT Nasally prn Active INSTILL 2 SPRAY IN EACH NOSTRIL ONCE A DAY NASALLY 30 DAY(S) Valdo Contour Test [facility] 06600177906 0 Bottles In Vitro 3 times a day Oct 08, 2015 Active as directed Lisinopril-Hydrochlorothiazide [facility] 64805507165 20-25 MG orally once a day Active TAKE 1 TABLET ONCE A DAY ORALLY 90 DAYS Zetia [facility] 04578422068 10 MG Orally Once a day September 04, 2017 Active 1 tablet Metformin HCl [facility] 53457318843 1000 MG Orally Twice a day Active 1 tablet with a meal Olopatadine HCl [facility] 37095650561 0.2 % Ophthalmic Once a day June 02, 2017 Active as directed OneTouch Verio Flex System [facility] 16886118039 w/Device SQ QAC Mar 04, 2017 Active as directed Atorvastatin Calcium [facility] 57041571828 40 MG orally once a day Active TAKE 1 TABLET ONCE A DAY ORALLY 90 DAYS Vital Signs Date/Time: Jan 18, 2018 BMI 35.78 Index Weight 197.2 lbs Height 62.25 in Cardiac Monitoring Heart Rate 83 /min Blood Pressure Diastolic 80 mm Hg Blood Pressure Systolic 136 mm Hg Results No Known Results Summary Purpose eClinicalWorks Submission
--- OUTSIDE RECORDS SUMMARY | 2018-05-07 05:19 | XMS REPORT ---
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
--- OUTSIDE RECORDS SUMMARY | 2018-05-07 05:19 | XMS REPORT ---
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 Problem 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 Problem 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 Problem Obesity E66.9 Active Problem Balanitis N48.1 Active Problem Type 2 diabetes mellitus with diabetic neuropathy, unspecified E11.40 Active Problem 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 G99.0 Active 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.4 Active Problem Acute nasopharyngitis J00 Active Problem Acute pain of right knee M25.561 Active Problem Abrasion of right cornea, initial encounter S05.01XA Active Problem Acute eye pain H57.10 Active Problem Acute bilateral low back pain without sciatica M54.5 Active Problem Possible urinary tract infection R39.89 Active Problem History of melanoma Z85.820 Active Problem Major 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, single episode, moderate F32.1 Active Problem Encounter for general adult medical examination without abnormal findings Z00.00 Active Problem Uncontrolled type 2 diabetes mellitus with hyperglycemia E11.65 Active Problem Neoplasm of uncertain behavior of skin D48.5 Active Problem Obesity (BMI 35.0-39.9 without comorbidity) E66.01 Active Problem BMI 36.0-36.9,adult Z68.36 Active Problem 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.20 Active Problem Allergic conjunctivitis of both eyes H10.13 Active Problem Hyperlipidemia E78.5 Active Problem Constipation, unspecified K59.00 Active Problem Hypertension I10 Active Problem Body mass index (BMI) of 36.0-36.9 in adult Z68.36 Active Problem BMI 35.0-35.9,adult Z68.35 Active Problem Benign hypertensive heart disease without congestive heart failure I11.9 Active Problem 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 Active Problem Diabetic polyneuropathy associated with type 2 diabetes mellitus E11.42 Active Problem Type 2 diabetes mellitus with other specified complication E11.69 Active Problem Polyneuropathy in diabetes E11.42 Active Problem Diabetes mellitus with neuropathy E11.40 Active Problem Insomnia G47.00 Active Problem Diabetic neuropathy E11.40 Active Problem Cancer of body of penis C60.2 Active Problem BPH (benign prostatic hyperplasia) N40.0 Active Problem Body mass index (BMI) of 35.0-35.9 in adult Z68.35 Active Problem Need for pneumococcal vaccination Z23 Active Problem Chronic seasonal allergic rhinitis, unspecified trigger J30.2 Active Medications Medication Code System Code Instructions Start Date End Date Status Dosage Fluticasone Propionate [facility] 66823568552 50 MCG/ACT Nasally prn Active INSTILL 2 SPRAY IN EACH NOSTRIL ONCE A DAY NASALLY 30 DAY(S) Results No Known Results Summary Purpose eClinicalWorks Submission
--- OUTSIDE RECORDS SUMMARY | 2018-05-07 05:19 | XMS REPORT ---
Author Author Debbi Salcido [facility] eClinicalWorks Address Unknown Phone Unavailable Care Team Providers Care Editing Internship Name Role Phone Debbi Salcido CP Unavailable Allergies, Adverse Reactions, Alerts Substance Reaction Event Type Iodine Info Not Available Drug Allergy Problems Problem Type Condition Code Onset Dates Condition Status Problem Adjustment disorder with mixed anxiety and depressed mood F43.23 Active Problem Other seasonal allergic rhinitis J30.2 Active Problem Dysthymia F34.1 Active Problem DM [...] disorder, single episode, moderate F32.1 Active Problem Diabetic polyneuropathy associated with type 2 diabetes mellitus E11.42 Active Problem Need for pneumococcal vaccination Z23 Active Problem Insomnia G47.00 Active Problem Benign hypertensive heart disease without congestive heart failure I11.9 Active Problem Body mass index (BMI) of 35.0-35.9 in adult Z68.35 Active Problem Type 2 diabetes mellitus with diabetic neuropathy, unspecified E11.40 Active Problem Chronic seasonal allergic rhinitis, unspecified trigger J30.2 Active Problem Cancer of body of penis C60.2 Active Assessment 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.20 Active Assessment Obesity (BMI 35.0-39.9 without comorbidity) E66.01 Active Assessment Diabetic polyneuropathy associated with type 2 diabetes mellitus E11.42 Active Assessment Major 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, single episode, moderate F32.1 Active Assessment Body mass index (BMI) of 35.0-35.9 in adult Z68.35 Active Assessment Hyperlipidemia E78.5 Active Assessment Hypertension I10 Active Problem 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 Problem Hypertension I10 Active Problem alf current use of insulin Z79.4 Active Assessment Type 2 diabetes mellitus with other specified complication E11.69 Active Problem Acute pain of right knee M25.561 Active Problem Acute eye pain H57.10 Active Problem BMI 36.0-36.9,adult Z68.36 Active Problem Abrasion of right cornea, initial encounter S05.01XA Active Problem Body mass index (BMI) of 34.0-34.9 in adult Z68.34 Active Problem Body mass index (BMI) of 36.0-36.9 in adult Z68.36 Active Problem Uncontrolled type 2 diabetes mellitus with hyperglycemia E11.65 Active Problem Diabetic neuropathy E11.40 Active Problem Possible urinary tract infection R39.89 Active Problem Encounter for general adult medical examination without abnormal findings Z00.00 Active Problem Allergic conjunctivitis of both eyes H10.13 Active Problem Obesity (BMI 35.0-39.9 without comorbidity) E66.01 Active Problem Constipation, unspecified K59.00 Active Problem 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.20 Active Problem Acute bilateral low back pain without sciatica M54.5 Active Problem Hyperlipidemia E78.5 Active Problem 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 Active Problem 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, 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 Active Problem Diabetes mellitus with neuropathy E11.40 Active Problem BMI 35.0-35.9,adult Z68.35 Active Problem BPH (benign prostatic hyperplasia) N40.0 Active Problem Type 2 diabetes mellitus with other specified complication E11.69 Active Medications Medication Code System Code Instructions Start Date End Date Status Dosage Gabapentin [facility] 55074419851 300 MG Orally Twice a day Oct 19, 2017 Active 1 capsule before bedtime NovoLog Flexpen [facility] 26817463946 100 UNIT/ML Subcutaneous tid with meals Active 50 units Atorvastatin Calcium [facility] 03869470204 40 MG orally once a day Active TAKE 1 TABLET ONCE A DAY ORALLY 90 DAYS OneTouch Verio [facility] 86880996634 - In Vitro QAC Mar 04, 2017 Active as directed OneTouch Verio Flex System [facility] 88128965351 w/Device SQ QAC Mar 04, 2017 Active as directed Trulicity [facility] 83953306989 0.75 mg/0.5 mL Subcutaneous not taking June 10, 2017 Dec 02, 2017 Inactive 0.5 mL MiraLax [facility] 57221750512 - Orally Active as directed Metformin HCl [facility] 04526630643 1000 MG Orally Twice a day Active 1 tablet with a meal Azelastine HCl [facility] 28619939513 0.1 % Nasally Twice a day Active 1 puff in each nostril Fluticasone Propionate [facility] 53897650202 50 MCG/ACT Nasally prn Active INSTILL 2 SPRAY IN EACH NOSTRIL ONCE A DAY NASALLY 30 DAY(S) NovoFine [facility] 98778721824 30G X 8 MM SQ QID August 02, 2015 Active as directed Valdo Contour Test [facility] 59203380277 0 Bottles In Vitro 3 times a day Oct 08, 2015 Active as directed Nortriptyline HCl [facility] 07027893918 50 MG orally once a day Active 1 capsule Tresiba FlexTouch [facility] 87671102050 200 UNIT/ML Subcutaneous once a day Active 85 units Tramadol HCl [facility] 08966316692 50 MG Orally every 12 hrs Sep 26, 2016 Active 1 tablet as needed Olopatadine HCl [facility] 92564672735 0.2 % Ophthalmic Once a day June 02, 2017 Active as directed Zetia [facility] 67674615179 10 MG Orally Once a day September 04, 2017 Active 1 tablet Lisinopril-Hydrochlorothiazide [facility] 50034594587 20-25 MG orally once a day Active TAKE 1 TABLET ONCE A DAY ORALLY 90 DAYS Valdo Contour Next Test [facility] 43604898039 - Active USE DIRECTED 3 TIMES A DAY Vital Signs Date/Time: Dec 02, 2017 BMI 35.41 Index Weight 195.2 lbs Height 62.25 in Cardiac Monitoring Heart Rate 79 /min Blood Pressure Diastolic 80 mm Hg Blood Pressure Systolic 127 mm Hg Results No Known Results Summary Purpose eClinicalWorks Submission
--- OUTSIDE RECORDS SUMMARY | 2018-05-07 05:19 | XMS REPORT ---
Author Author Debbi Salcido [facility] eClinicalWorks Address Unknown Phone Unavailable Care Team Providers Care Final Cigar And Box Examiner Name Role Phone Debbi Salcido CP Unavailable [...] Active Problem History of melanoma Z85.820 Active Assessment Encounter for screening for malignant neoplasm of prostate Z12.5 Active Assessment Major 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, single episode, moderate F32.1 Active Assessment Encounter for screening for HIV Z11.4 Active Assessment Contact with and suspected exposure to communicable disease Z20.9 Active Assessment Constipation, unspecified K59.00 Active Assessment Insomnia G47.00 Active Assessment Chronic seasonal allergic rhinitis, unspecified [...] right cornea, initial encounter S05.01XA Active Problem roasterman current use of insulin Z79.4 Active Problem Acute pain of right knee M25.561 Active Assessment Diabetic neuropathy E11.40 Active Assessment 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.20 Active Assessment BMI 35.0-35.9,adult Z68.35 Active Assessment BPH (benign prostatic hyperplasia) N40.0 Active Problem Hyperlipidemia E78.5 Active Assessment Hyperlipidemia E78.5 Active Assessment Type 2 diabetes mellitus with other specified complication E11.69 Active Assessment Routine general medical examination at a health care facility Z00.00 Active Assessment Hypertension I10 Active Problem Hypertension I10 Active Problem Disruptions [...] H93.13 Active Problem 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, 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 Active Medications Medication Code System Code Instructions Start Date End Date Status Dosage Shingrix [facility] 08581200370 50 MCG Intramuscular once Mar 01, 2018 Mar 03, 2018 Active as directed Tramadol HCl [facility] 40495904650 50 MG Orally every 12 hrs Sep 26, 2016 Active 1 tablet as needed Valdo Contour Next Test [facility] 94585547277 - Active USE DIRECTED 3 TIMES A DAY OneTouch Verio Flex System ND 80280656583 w/Device SQ QAC Mar 04, 2017 Active as directed Fluticasone Propionate ND 57172064021 50 MCG/ACT Nasally prn Active INSTILL 2 SPRAY IN EACH NOSTRIL ONCE A DAY NASALLY 30 DAY(S) Tresiba FlexTouch ND 71059025389 200 UNIT/ML Subcutaneous once a day Active 85 units NovoLog Flexpen ND 52588893262 100 UNIT/ML Subcutaneous tid with meals Active 50 units Gabapentin ND 18326514521 300 MG Orally Twice a day Oct 19, 2017 Active 1 capsule before bedtime Pneumococcal 13-Jenni Conj Vacc [facility] [address]-92 - Intramuscular once Mar 01, 2018 Mar 03, 2018 Active as directed Nortriptyline HCl [facility] 68594984884 50 MG orally once a day Active 1 capsule Lisinopril-Hydrochlorothiazide [facility] 04939019269 20-25 MG orally once a day Active TAKE 1 TABLET ONCE A DAY ORALLY 90 DAYS Sudafed [facility] 66068527096 30 MG Orally every 6 hrs Active 1 tablet as needed Azelastine HCl [facility] 18640234706 0.1 % Nasally Twice a day Active 1 puff in each nostril Metformin HCl [facility] 33181902544 1000 MG Orally Twice a day Active 1 tablet with a meal Zetia ND 04953299547 10 MG Orally Once a day September 04, 2017 Active 1 tablet Valdo Contour Test [facility] 08982818718 0 Bottles In Vitro 3 times a day Oct 08, 2015 Active as directed NovoFine ND 44536356032 30G X 8 MM SQ QID August 02, 2015 Active as directed OneTouch Verio ND 15761277727 - In Vitro QAC Active as directed Sudafed 12 Hour ND 82452771486 120 MG Orally every 12 hrs Active 1 tablet as needed Olopatadine HCl ND 35139413386 0.2 % Ophthalmic Once a day June 02, 2017 Active as directed MiraLax ND 91294393446 - Orally Active as directed Atorvastatin Calcium ND 42858082187 40 MG orally once a day Active TAKE 1 TABLET ONCE A DAY ORALLY 90 DAYS Vital Signs Date/Time: Mar 01, 2018 BMI 35.61 Index Weight 196.3 lbs Height 62.25 in Cardiac Monitoring Heart Rate 87 /min Blood Pressure Diastolic 80 mm Hg Blood Pressure Systolic 134 mm Hg Results No Known Results Summary Purpose eClinicalWorks Submission
--- OUTSIDE RECORDS SUMMARY | 2018-05-07 05:19 | XMS REPORT ---
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 Problem Type 2 diabetes mellitus with other specified complication E11.69 Active Assessment BPH (benign prostatic hyperplasia) N40.0 Active Problem Hypertension I10 Active Problem Hyperlipidemia E78.5 Active Problem Diabetes mellitus with neuropathy E11.40 Active Problem BMI 35.0-35.9,adult Z68.35 Active Problem 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.20 Active Problem Diabetic neuropathy E11.40 Active Assessment BMI 35.0-35.9,adult Z68.35 Active Assessment Diabetes mellitus with neuropathy E11.40 Active Assessment 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 Assessment Obesity (BMI 35.0-39.9 without comorbidity) E66.01 Active Assessment Hypertension I10 Active Assessment Hyperlipidemia E78.5 Active Assessment Diabetic neuropathy E11.40 Active Assessment Encounter for general adult medical examination without abnormal findings Z00.00 Active Assessment 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.20 Active Problem Encounter for general adult medical examination without abnormal findings Z00.00 Active Medications Medication Code System Code Instructions Start Date End Date Status Dosage Metformin HCl [facility] [address]-31 1000 MG Orally Twice a day Active 1 tablet with meals Lisinopril-Hydrochlorothiazide [facility] [address]-69 20-25 MG Orally Once a day Active 1 tablet Trazodone HCl [facility] [address]-93 50 MG Orally Once a day as needed for sleep May 02, 2015 Active 1-2 tablet at bedtime as needed Humalog KwikPen [facility] [address]-02 100 UNIT/ML Subcutaneous Active 15 units with meals Glimepiride [facility] [address]-10 4 MG Orally Once a day May 02, 2015 Inactive 1 tablet with breakfast or the first main meal of the day Lovastatin [facility] [address]-68 20 MG Orally Once a day Active 1 tablet with a meal Nortriptyline HCl [facility] [address]-99 25 MG Orally Once a day Active 1 capsule Clonazepam [facility] [address]-88 0.5 MG Orally Twice a day May 02, 2015 Inactive 1 tablet Toujeo DaryoStar [facility] 4164-0353-44 300 units/ml SubQ once a day Active 57 units Social History Social History Element Qualifiers Date 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 Do you currently use recreational or street drugs? No May 02, 2015 Mental Health . depressed, no, is stress a major problem for you?, yes, do you panic when stressed?, yes, cry frequently?, no, no, attempted suicide?, seriously thought about hurting yourself?, no, trouble sleeping?, yes, been to a counselor?, no, currently, no May 02, 2015 Diet: . Are you dieting? No, Number of meals in an average day 4, Rank salt intake Medium, Rank fat intake Medium May 02, 2015 Men only . usually get up to urinate at night?, yes, # of times2, pain or burning with urination, no, blood in urine, no, burning discharge from penis?, no, force of urination decreased?, yes, had any kidney, bladder, or prostate infection in last 12 month?, no, any problems emptying bladder completely?, yes, difficulty with erection or ejaculation?, no, testicle pain or swelling?, no, date of prostate and rectal exam? 11/2014 dr. jh harris May 02, 2015 Pets: . No May 02, 2015 Marital Status: . May 02, 2015 Sex . Are you sexually active? Yes, If yes, are you trying for a ? No, Any discomfort with intercourse? no May 02, 2015 Tobacco Use . Are you a: Former Smoker 2-3 years (3-4 cigs on weekends), How long ago did you quit: 40 40 yrs ago quit May 02, 2015 Exercise: . Mild (1-2 x week), Walking May 02, 2015 Alcohol: . Do you drink alcohol? Yes, If yes, what kind? Beer, How many drinks per day? 0, How many drinks per week? 2 to 3 month, Are you concerned about the amount you drink No, Are you prone to "binge" drinking? No, Do you drive after drinking? No May 02, 2015 Caffeine . What kind of caffeine do you drink? Coffee tea cola, Number of cups/cans per day? 2 May 02, 2015 Smoking . 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
--- OUTSIDE RECORDS SUMMARY | 2018-05-07 05:19 | XMS REPORT ---
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 Active Problem DM eye manif type II E11.39 Active Problem Adjustment disorder with mixed anxiety and depressed mood F43.23 Active Assessment Body mass index (BMI) of 36.0-36.9 in adult Z68.36 Active Problem Dysthymia F34.1 Active Assessment Needs flu shot Z23 Active Problem 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 Problem 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 Problem 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 Problem Obesity E66.9 Active Problem Balanitis N48.1 Active Problem Type 2 diabetes mellitus with diabetic neuropathy, unspecified E11.40 Active Problem 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 G99.0 Active Problem group home current use of insulin Z79.4 Active [...] Start Date End Date Status Dosage Lisinopril-Hydrochlorothiazide [facility] 33418463055 20-25 MG Active TAKE 1 TABLET ONCE A DAY ORALLY 90 DAYS Gabapentin [facility] 69828351864 300 MG Orally Once a day Oct 19, 2017 Active 1 capsule before bedtime Atorvastatin Calcium [facility] 85041678198 40 MG Active TAKE 1 TABLET ONCE A DAY ORALLY 90 DAYS Metformin HCl [facility] 31927124126 1000 MG Orally Twice a day Active take 1 tablet with meals twice a day orally 90 days Valdo Contour Next Test [facility] 30845315548 - Active USE DIRECTED 3 TIMES A DAY Tresiba FlexTouch [facility] 05456413530 200 UNIT/ML Subcutaneous once a day Active 80 units Trulicity [facility] 78931478459 0.75 mg/0.5 mL Subcutaneous Once a week June 10, 2017 Active 0.5 mL Fluticasone Propionate [facility] 06932489707 50 MCG/ACT Nasally prn Active INSTILL 2 SPRAY IN EACH NOSTRIL ONCE A DAY NASALLY 30 DAY(S) Nortriptyline HCl [facility] 81311570250 50 MG once a day Active TAKE 1 CAPSULE AT BEDTIME ONCE A DAY ORALLY 90 DAYS NovoLog Flexpen [facility] 15576812061 100 UNIT/ML Subcutaneous tid with meals Active 50 units OneTouch Verio Flex System [facility] 98882716496 w/Device SQ QAC Mar 04, 2017 Active as directed OneTouch Verio [facility] 82223443144 - In Vitro QAC Mar 04, 2017 Active as directed Zetia [facility] 07463946286 10 MG Orally Once a day September 04, 2017 Active 1 tablet MiraLax [facility] 04128846385 - Orally Active as directed Tramadol HCl [facility] 23708931626 50 MG Orally every 12 hrs Sep 26, 2016 Active 1 tablet as needed Olopatadine HCl [facility] 40646974940 0.2 % Ophthalmic Once a day June 02, 2017 Active as directed NovoFine [facility] 16442407778 30G X 8 MM SQ QID August 02, 2015 Active as directed Valdo Contour Test [facility] 88550137734 0 Bottles In Vitro 3 times a day Oct 08, 2015 Active as directed Azelastine HCl [facility] 28281852228 0.1 % Nasally Twice a day Active 1 puff in each nostril Vital Signs Date/Time: Nov 23, 2017 BMI 36.39 Index Weight 200.6 lbs Height 62.25 in Temperature 97.9 F Cardiac Monitoring Heart Rate 80 /min Blood Pressure Diastolic 78 mm Hg Blood Pressure Systolic 159 mm Hg Results No Known Results Immunizations Vaccine Administration Date Flu - Medicare Nov 23, 2017 Summary Purpose eClinicalWorks Submission
--- OUTSIDE RECORDS SUMMARY | 2018-05-07 05:19 | XMS REPORT ---
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 May 02, 2015 Unknown [facility] 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 Assessment Hyperlipidemia E78.5 Active Problem Encounter for general adult medical examination without abnormal findings Z00.00 Active Problem Type 2 diabetes mellitus with other specified complication E11.69 Active Problem Hypertension I10 Active Problem Hyperlipidemia E78.5 Active Problem Diabetes mellitus with neuropathy E11.40 Active Problem BMI 35.0-35.9,adult Z68.35 Active Problem 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.20 Active Problem Diabetic neuropathy E11.40 Active Medications Medication Code System Code Instructions Start Date End Date Status Dosage Lovastatin [facility] [address]-46 40 MG Orally Once a day Active 1 tablet with a meal Social History Social History Element Qualifiers Date 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
--- OUTSIDE RECORDS SUMMARY | 2018-05-07 05:19 | XMS REPORT ---
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
--- OUTSIDE RECORDS SUMMARY | 2018-05-07 05:20 | XMS REPORT ---
Author Author Debbi Salcido eClinicalWorks Address Unknown Phone Unavailable Care Team Providers Care Barbering Teacher Name Role Phone Debbi Salcido Unavailable Encounters Encounter Location Date Cough, congestion [facility] July 03, 2015 Cough [facility] July 11, 2015 ANTITANK ASSAULT GUNNER, [place] [facility] May 02, 2015 Unknown [facility] May 11, 2015 Referral [facility] 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 Problem BMI 35.0-35.9,adult Z68.35 Active Problem Obesity (BMI 35.0-39.9 without comorbidity) E66.01 Active Problem Encounter for general adult medical examination without abnormal findings Z00.00 Active Problem BPH (benign prostatic hyperplasia) N40.0 Active Problem Hyperlipidemia E78.5 Active Problem Type 2 diabetes mellitus with other specified complication E11.69 Active Problem Acute nasopharyngitis J00 Active Problem Diabetic neuropathy E11.40 Active Problem Diabetes mellitus with neuropathy E11.40 Active Problem Hypertension I10 Active Problem 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.20 Active Medications Medication Code System Code Instructions Start Date End Date Status Dosage [facility] [address]-67 250 MG Orally Once a day July 12, 2015 July 17, 2015 Active 2 tablets on the first day, then 1 tablet daily for 4 days Social History Social History Element Qualifiers Date 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 Do you currently use recreational or street drugs? No July 03, 2015 Mental Health . depressed, no, is stress a major problem for you?, yes, do you panic when stressed?, yes, cry frequently?, no, no, attempted suicide?, seriously thought about hurting yourself?, no, trouble sleeping?, yes, been to a counselor?, no, currently, no July 03, 2015 Diet: . Are you dieting? No, Number of meals in an average day 4, Rank salt intake Medium, Rank fat intake Medium July 03, 2015 Men only . usually get up [...] and rectal exam? 11/2014 dr. jh harris July 03, 2015 Pets: . No July 03, 2015 Marital Status: . July 03, 2015 Sex . Are you sexually active? Yes, If yes, are you trying for a ? No, Any discomfort with intercourse? no July 03, 2015 Tobacco Use . Are you a: Former Smoker 2-3 years (3-4 cigs on weekends), How long ago did you quit: 40 40 yrs ago quit July 03, 2015 Exercise: . Mild (1-2 x week), Walking July 03, 2015 Alcohol: . Do you drink alcohol? Yes, If yes, what kind? Beer, How many drinks per day? 0, How many drinks per week? 2 to 3 month, Are you concerned about the amount you drink No, Are you prone to "binge" drinking? No, Do you drive after drinking? No July 03, 2015 Caffeine . What kind of caffeine do you drink? Coffee tea cola, Number of cups/cans per day? 2 July 03, 2015 Smoking . 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
--- OUTSIDE RECORDS SUMMARY | 2018-05-07 05:20 | XMS REPORT ---
Author Author Debbi Salcido [facility] eClinicalWorks Address Unknown Phone Unavailable Care Team Providers Care Forming Mill Operator Name Role Phone Debbi Salcido Unavailable Allergies, Adverse Reactions, Alerts Substance Reaction Event Type Iodine Info Not Available Drug Allergy Encounters Encounter Location Date Cough, congestion [facility] July 03, 2015 Cough [facility] July 11, 2015 Unknown [facility] August 03, 2015 3 mo f/u fasting labs, meds [facility] 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 May 02, 2015 Unknown [facility] May 11, 2015 Referral [facility] 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.20 Active Assessment Localized scleroderma [morphea] L94.0 Active Assessment Type 2 diabetes mellitus with other specified complication E11.69 Active Assessment Diabetic neuropathy E11.40 Active Assessment Hyperlipidemia E78.5 Active Problem 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 G99.0 Active Assessment Obesity (BMI 35.0-39.9 without comorbidity) E66.01 Active Problem 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, 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 Active Assessment Hypertension I10 Active Problem Adjustment disorder with mixed anxiety and depressed mood F43.23 Active Problem Obesity E66.9 Active Problem Dysthymia F34.1 Active Problem 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 Active Problem DM eye manif type II E11.39 Active Problem 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 Problem BPH (benign prostatic hyperplasia) N40.0 Active Assessment 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, 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 Active Problem Acute nasopharyngitis J00 Active Problem Encounter for general adult medical examination without abnormal findings Z00.00 Active Assessment 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 G99.0 Active Problem Other seasonal allergic rhinitis J30.2 Active Assessment Sensorineural hearing loss, bilateral H90.3 Active Problem Balanitis N48.1 Active Assessment Chronic rhinitis J31.0 Active Problem 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 Assessment Lichen sclerosus L90.0 Active Problem 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 Assessment Other seasonal allergic rhinitis J30.2 Active Problem Diabetes mellitus with neuropathy E11.40 Active Assessment 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 Problem Diabetic neuropathy E11.40 Active Assessment Obesity E66.9 Active Problem Obesity (BMI 35.0-39.9 without comorbidity) E66.01 Active Assessment Balanitis N48.1 Active Problem BMI 35.0-35.9,adult Z68.35 Active Assessment Adjustment disorder with mixed anxiety and depressed mood F43.23 Active Problem Type 2 diabetes mellitus with other specified complication E11.69 Active Assessment Dysthymia F34.1 Active Problem Hyperlipidemia E78.5 Active Problem 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 Active Problem Hypertension I10 Active Medications Medication Code System Code Instructions Start Date End Date Status Dosage Lisinopril-Hydrochlorothiazide [facility] [address]-96 20-25 MG Orally Once a day Active 1 tablet Toujeo SoloStar [facility] 4326-6854-24 300 units/ml SubQ once a day August 02, 2015 Inactive 57 units Trazodone HCl [facility] [address]-10 50 MG Orally Once a day as needed for sleep May 02, 2015 Active 1-2 tablet at bedtime as needed Metformin HCl [facility] [address]-40 1000 MG Orally Twice a day Active 1 tablet with meals Tresiba [facility] 3455-7687-77 200 Subcutaneous Once a day August 02, 2015 Nov 30, 2015 Active 57 units NovoFine [facility] [address]-35 30G X 8 MM SQ QID August 02, 2015 Active as directed Fluticasone Propionate [facility] [address]-28 50 MCG/ACT Nasally Once a day July 03, 2015 Active 2 spray in each nostril Nortriptyline HCl [facility] [address]-54 25 MG Orally Once a day Active 1 capsule Humalog KwikPen [facility] [address]-58 100 UNIT/ML Subcutaneous Active 15 units with meals Lovastatin [facility] [address]-83 40 MG Orally Once a day Active 1 tablet with a meal Social History Social History Element Qualifiers Date Reported Occupation: . Retired - [employer] August 02, 2015 Recreational Drugs . Do you currently use recreational or street drugs? No August 02, 2015 Mental Health . depressed, no, is stress a major problem for you?, yes, do you panic when stressed?, yes, cry frequently?, no, no, attempted suicide?, seriously thought about hurting yourself?, no, trouble sleeping?, yes, been to a counselor?, no, currently, no August 02, 2015 Diet: . Are you dieting? No, Number of meals in an average day 4, Rank salt intake Medium, Rank fat intake Medium August 02, 2015 Men only . usually get [...] and rectal exam? 11/2014 dr. jh harris August 02, 2015 Pets: . No August 02, 2015 Marital Status: . August 02, 2015 Sex . Are you sexually active? Yes, If yes, are you trying for a ? No, Any discomfort with intercourse? no August 02, 2015 Smoke Exposure: . Second Hand Smoke Exposure: No August 02, 2015 Tobacco Use . Are you a: Former Smoker 2-3 years (3-4 cigs on weekends), How long ago did you quit: 40 40 yrs ago quit August 02, 2015 Exercise: . Mild (1-2 x week), Walking August 02, 2015 Alcohol: . Do you drink alcohol? Yes, If yes, what kind? Beer, How many drinks per day? 0, How many drinks per week? 2 to 3 month, Are you concerned about the amount you drink No, Are you prone to "binge" drinking? No, Do you drive after drinking? No August 02, 2015 Caffeine . What kind of caffeine do you drink? Coffee tea cola, Number of cups/cans per day? 2 August 02, 2015 Smoking . 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
--- OUTSIDE RECORDS SUMMARY | 2018-05-07 05:20 | XMS REPORT ---
Author Author Debbi Salcido eClinicalWorks Address Unknown Phone Unavailable Care Team Providers Care Conference Service Coordinator Name Role Phone Debbi Salcido Unavailable Encounters Encounter Location Date Cough, congestion [facility] July 03, 2015 Cough [facility] July 11, 2015 Unknown [facility] August 03, 2015 3 mo f/u fasting labs, meds [facility] 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 May 02, 2015 Unknown [facility] May 11, 2015 Referral [facility] May 22, 2015 Referral [facility] August 20, 2015 Medication [facility] 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 Problem DM eye manif type II E11.39 Active Problem BPH (benign prostatic hyperplasia) N40.0 Active Problem Encounter for general adult medical examination without abnormal findings Z00.00 Active Problem Acute nasopharyngitis J00 Active Problem Other seasonal allergic rhinitis J30.2 Active Problem Balanitis N48.1 Active Problem 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 Problem 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 Problem Diabetes mellitus with neuropathy E11.40 Active Problem Diabetic neuropathy E11.40 Active Problem Obesity (BMI 35.0-39.9 without comorbidity) E66.01 Active Problem BMI 35.0-35.9,adult Z68.35 Active Problem Type 2 diabetes mellitus with other specified complication E11.69 Active Problem Hyperlipidemia E78.5 Active Problem 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 Retired - [employer] August 02, 2015 Recreational Drugs . 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
--- OUTSIDE RECORDS SUMMARY | 2018-05-07 05:20 | XMS REPORT ---
Author Author Debbi Salcido eClinicalWorks Address Unknown Phone Unavailable Care Team Providers Care Quarantine Inspector Name Role Phone Debbi Salcido Unavailable Encounters Encounter Location Date Cough, congestion [facility] July 03, 2015 Cough [facility] July 11, 2015 Unknown [facility] August 03, 2015 3 mo f/u fasting labs, meds [facility] 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 May 02, 2015 Unknown [facility] May 11, 2015 Referral [facility] May 22, 2015 Referral [facility] 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
--- OUTSIDE RECORDS SUMMARY | 2018-05-07 05:20 | XMS REPORT ---
Author Author Debbi Salcido eClinicalWorks Address Unknown Phone Unavailable Care Team Providers Care Manager Of Global Name Role Phone Debbi Salcido Unavailable Encounters Encounter Location Date Cough, congestion [facility] July 03, 2015 Cough [facility] July 11, 2015 Unknown [facility] August 03, 2015 3 mo f/u fasting labs, meds [facility] 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 May 02, 2015 Unknown [facility] May 11, 2015 Referral [facility] May 22, 2015 MEdication Refill [facility] Oct 08, 2015 Referral [facility] August 20, 2015 Medication [facility] 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
--- OUTSIDE RECORDS SUMMARY | 2018-05-07 05:20 | XMS REPORT ---
Author Author Debbi Salcido [facility] eClinicalWorks Address Unknown Phone Unavailable Care Team Providers Care Vinegar Maker Name Role Phone Debbi Salcido Unavailable Allergies, Adverse Reactions, Alerts Substance Reaction Event Type Iodine Info Not Available Drug Allergy Encounters Encounter Location Date Cough, congestion [facility] July 03, 2015 Cough [facility] July 11, 2015 Unknown [facility] August 03, 2015 3 mo f/u fasting labs, [facility] August 02, 2015 [facility] May 02, 2015 Unknown [facility] May 11, 2015 Referral [facility] May 22, 2015 MEdication Refill [facility] Oct 08, 2015 Referral [facility] August 20, 2015 Medication [facility] Oct 01, 2015 3mnth f/u fasting labs, [facility] Feb 07, 2016 3mnth, fasting labs, [facility] Nov 08, 2015 Unknown [facility] 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 Problem Diabetes mellitus with neuropathy E11.40 Active Problem 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 Problem Diabetic neuropathy E11.40 Active Problem DM eye manif type II E11.39 Active Problem Acute nasopharyngitis J00 Active Problem 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 Active Problem Benign hypertensive heart disease without congestive heart failure I11.9 Active Problem Major 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, single episode, moderate F32.1 Active Problem Type 2 diabetes mellitus with other specified complication E11.69 Active Problem Hypertension I10 Active Problem Diabetic polyneuropathy associated with type 2 diabetes mellitus E11.42 Active Problem 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.20 Active Problem Neoplasm of uncertain behavior of skin D48.5 Active Problem History of melanoma Z85.820 Active Problem Polyneuropathy in diabetes E11.42 Active Problem Insomnia G47.00 Active Assessment Balanitis N48.1 Active Problem 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, 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 Active Assessment 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 Problem Adjustment disorder with mixed anxiety and depressed mood F43.23 Active Assessment Diabetes mellitus with neuropathy E11.40 Active Problem Hyperlipidemia E78.5 Active Assessment BPH (benign prostatic hyperplasia) N40.0 Active Problem 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 G99.0 Active Assessment Benign hypertensive heart disease without congestive heart failure I11.9 Active Problem Balanitis N48.1 Active Assessment Diabetic polyneuropathy associated with type 2 diabetes mellitus E11.42 Active Problem Other seasonal allergic rhinitis J30.2 Active Problem Dysthymia F34.1 Active Problem Obesity E66.9 Active Medications Medication Code System Code Instructions Start Date End Date Status Dosage Metformin HCl [facility] [address]-37 1000 MG Orally Twice a day Active 1 tablet with meals [facility]alog [facility] [address]-36 100 UNIT/ML Subcutaneous three times a day Active 15 units with meals Fluticasone Propionate [facility] [address]-48 50 MCG/ACT Nasally Once a day July 03, 2015 Active 2 spray in each nostril Trazodone HCl iLogonAN 78622871996 50 MG Orally Once a day as needed for sleep Active 1-2 tablet at bedtime as needed Azelastine HCl [facility] [address]-26 0.1 % Nasally Twice a day Active 1 puff in each nostril Ángel SoloStar [facility] 1016-9937-74 300 units/ml SubQ once a day Feb 07, 2016 Inactive 60 units Tresiba FlexTouch [facility] [address]-76 200 UNIT/ML Subcutaneous once a day Feb 07, 2016 Active 70 units Valdo Contour Test [facility] [address]-08 0 Bottles In Vitro 3 times a day Oct 08, 2015 Active as directed Nortriptyline HCl [facility] [address]-80 25 MG Orally Once a day Active 1 capsule NovoFine [facility] [address]-12 30G X 8 MM SQ QID August 02, 2015 Active as directed Atorvastatin Calcium [facility] 06129406857 40 MG Orally Once a day Active 1 tablet Lisinopril-Hydrochlorothiazide [facility] [address]-57 20-25 MG Orally Once a day Active 1 tablet Social History Social History Element Qualifiers Date 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 Do you currently use recreational or street drugs? No Feb 07, 2016 Mental Health . depressed, no, is stress a major problem for you?, yes, do you panic when stressed?, yes, cry frequently?, no, no, attempted suicide?, seriously thought about hurting yourself?, no, trouble sleeping?, yes, been to a counselor?, no, currently, no Feb 07, 2016 Diet: . Are you dieting? No, Number of meals in an average day 4, Rank salt intake Medium, Rank fat intake Medium Feb 07, 2016 Men only . usually get up to [...] and rectal exam? 11/2014 dr. jh harris Feb 07, 2016 Pets: . No Feb 07, 2016 Marital Status: . Feb 07, 2016 Sex . Are you sexually active? Yes, If yes, are you trying for a ? No, Any discomfort with intercourse? no Feb 07, 2016 Smoke Exposure: . Second Hand Smoke Exposure: No Feb 07, 2016 Tobacco Use: . Are you a: Former Smoker 2-3 years (3-4 cigs on weekends), How long ago did you quit: 40 40 yrs ago quit Feb 07, 2016 Exercise: . Mild (1-2 x week), Walking Feb 07, 2016 Alcohol: . Do you drink alcohol? Yes, If yes, what kind? Beer, How many drinks per day? 0, How many drinks per week? 2 to 3 month, Are you concerned about the amount you drink No, Are you prone to "binge" drinking? No, Do you drive after drinking? No Feb 07, 2016 Caffeine . What kind of caffeine do you drink? Coffee tea cola, Number of cups/cans per day? 2 Feb 07, 2016 Smoking . 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 Family history Qualifier Description Comment Date Reported Mat Grandmother Comment not available Feb 07, 2016 Siblings Comment not available Feb 07, 2016 Children Comment not available Feb 07, 2016 Father Comment not available Feb 07, 2016 Pat G Grandmother Comment not available Feb 07, 2016 Mother alive Comment not available Feb 07, 2016 Pat G Grandfather Comment not available Feb 07, 2016 Other: Comment not available Feb 07, 2016 Mat G Grandmother Comment not available Feb 07, 2016 Mat G Grandfather Comment not available Feb 07, 2016 Patl Grandmother Comment not available Feb 07, 2016 Mat Grandfather Comment not available Feb 07, 2016 Pat Grandfather Comment not available Feb 07, 2016 Vital Signs Date/Time: Feb 07, 2016 Weight 193.4 lbs Height 62 in Cardiac Monitoring Heart Rate 81 /min Blood Pressure Diastolic 82 mm Hg Blood Pressure Systolic 148 mm Hg Summary Purpose eClinicalWorks Submission
--- OUTSIDE RECORDS SUMMARY | 2018-05-07 05:20 | XMS REPORT ---
Author Author Dania Galeana eClinicalWorks Address Unknown Phone Unavailable Care Team Providers Care Boring Machine Set Up Operator Jig Name Role Phone Dania Galeana CP Unavailable Allergies, Adverse Reactions, Alerts Substance Reaction Event Type Iodine Info Not Available Drug Allergy Encounters Encounter Location Date Cough, congestion [facility] July 03, 2015 MANAGER JAVA, Susan Palsy [facility] May 02, 2015 Unknown [facility] May 11, 2015 Referral [facility] 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 Active Assessment Acute nasopharyngitis J00 Active Assessment Diabetes mellitus with neuropathy E11.40 Active Assessment Hyperlipidemia E78.5 Active Problem Encounter for general adult medical examination without abnormal findings Z00.00 Active Assessment Hypertension I10 Active Problem BPH (benign prostatic hyperplasia) N40.0 Active Medications Medication Code System Code Instructions Start Date End Date Status Dosage Toujeo SoloStar [facility] 8548-8247-61 300 units/ml SubQ once a day Active 57 units Lovastatin [facility] [address]-85 40 MG Orally Once a day Active 1 tablet with a meal Nortriptyline HCl [facility] [address]-75 25 MG Orally Once a day Active 1 capsule Humalog KwikPen [facility] [address]-54 100 UNIT/ML Subcutaneous Active 15 units with meals Metformin HCl [facility] [address]-71 1000 MG Orally Twice a day Active 1 tablet with meals Lisinopril-Hydrochlorothiazide [facility] [address]-22 20-25 MG Orally Once a day Active 1 tablet Lang Shultz [facility] [address]-81 100 MG Orally Three times a day July 03, 2015 July 13, 2015 Active 1 capsule as needed Fluticasone Propionate [facility] [address]-60 50 MCG/ACT Nasally Once a day July 03, 2015 Active 2 spray in each nostril Trazodone HCl [facility] [address]-97 50 MG Orally Once a day as needed for sleep May 02, 2015 Active 1-2 tablet at bedtime as needed Social History Social History Element Qualifiers Date 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
--- OUTSIDE RECORDS SUMMARY | 2018-05-07 05:20 | XMS REPORT ---
Author Author Debbi Salcido eClinicalWorks Address Unknown Phone Unavailable Care Team Providers Care Packer Sausage And Wiener Name Role Phone Debbi Salcido Unavailable Encounters Encounter Location Date Cough, congestion [facility] July 03, 2015 Cough [facility] July 11, 2015 Unknown [facility] August 03, 2015 3 mo f/u fasting labs, [facility] 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 May 02, 2015 3mnth, fasting labs, [facility] Nov 08, 2015 Unknown [facility] May 11, 2015 Unknown [facility] Nov 09, 2015 Referral [facility] May 22, 2015 MEdication Refill [facility] Oct 08, 2015 Referral [facility] August 20, 2015 Medication [facility] 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 Problem DM eye manif type II E11.39 Active Problem 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 Problem Polyneuropathy in diabetes E11.42 Active Problem Insomnia G47.00 Active Problem 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.20 Active Problem Diabetic neuropathy E11.40 Active Problem Major 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, single episode, moderate F32.1 Active Problem Diabetes mellitus with neuropathy E11.40 Active Problem Acute nasopharyngitis J00 Active Problem 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 Active Problem Neoplasm of uncertain behavior of skin D48.5 Active Problem History of melanoma Z85.820 Active Problem Hyperlipidemia E78.5 Active Problem 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 G99.0 Active Problem Hypertension I10 Active Problem Type 2 diabetes mellitus with other specified complication E11.69 Active Problem Dysthymia F34.1 Active Problem Obesity E66.9 Active Problem Depression of infancy to imitation marble mechanic, 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 Active Problem Adjustment disorder with mixed anxiety and depressed mood F43.23 Active Medications Medication Code System Code Instructions Start Date End Date Status Dosage Ángel Roman MEDISPAN 1959-3279-20 300 units/ml SubQ once a day Active 60 units Social History Social History Element Qualifiers Date 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 Do you currently use recreational or street drugs? No Nov 08, 2015 Mental Health . depressed, no, is stress a major problem for you?, yes, do you panic when stressed?, yes, cry frequently?, no, no, attempted suicide?, seriously thought about hurting yourself?, no, trouble sleeping?, yes, been to a counselor?, no, currently, no Nov 08, 2015 Diet: . Are you dieting? No, Number of meals in an average day 4, Rank salt intake Medium, Rank fat intake Medium Nov 08, 2015 Men only . usually get up [...] and rectal exam? 11/2014 dr. jh harris Nov 08, 2015 Pets: . No Nov 08, 2015 Marital Status: . Nov 08, 2015 Sex . Are you sexually active? Yes, If yes, are you trying for a ? No, Any discomfort with intercourse? no Nov 08, 2015 Smoke Exposure: . Second Hand Smoke Exposure: No Nov 08, 2015 Tobacco Use . Are you a: Former Smoker 2-3 years (3-4 cigs on weekends), How long ago did you quit: 40 40 yrs ago quit Nov 08, 2015 Exercise: . Mild (1-2 x week), Walking Nov 08, 2015 Alcohol: . Do you drink alcohol? Yes, If yes, what kind? Beer, How many drinks per day? 0, How many drinks per week? 2 to 3 month, Are you concerned about the amount you drink No, Are you prone to "binge" drinking? No, Do you drive after drinking? No Nov 08, 2015 Caffeine . What kind of caffeine do you drink? Coffee tea cola, Number of cups/cans per day? 2 Nov 08, 2015 Smoking . 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
--- OUTSIDE RECORDS SUMMARY | 2018-05-07 05:20 | XMS REPORT ---
Author Author Debbi Salcido eClinicalWorks Address Unknown Phone Unavailable Care Team Providers Care Glass Calibrator Name Role Phone Debbi Salcido Unavailable Allergies, Adverse Reactions, Alerts Substance Reaction Event Type Iodine Info Not Available Drug Allergy Encounters Encounter Location Date Cough, congestion [facility] July 03, 2015 Cough [facility] July 11, 2015 Unknown [facility] August 03, 2015 3 mo f/u fasting labs, [facility] 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 May 02, 2015 3mnth, fasting labs, [facility] Nov 08, 2015 Unknown [facility] May 11, 2015 Referral [facility] May 22, 2015 MEdication Refill [facility] Oct 08, 2015 Referral [facility] August 20, 2015 Medication [facility] Oct 01, 2015 Problems Problem Type Condition ICD-9 Code Onset Dates Condition Status Assessment Obesity (BMI 35.0-39.9 without comorbidity) E66.01 Active Assessment DM eye manif type II E11.39 Active Assessment Type 2 diabetes mellitus with other specified complication E11.69 Active Assessment Diabetic neuropathy E11.40 Active Assessment Hyperlipidemia E78.5 Active Assessment Hypertension I10 Active Problem Encounter for general adult medical [...] Problem History of melanoma Z85.820 Active Assessment Polyneuropathy in diabetes E11.42 Active Problem Hyperlipidemia E78.5 Active Assessment Major 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, single episode, moderate F32.1 Active Problem 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 G99.0 Active Assessment Neoplasm of uncertain behavior of skin D48.5 Active Problem Hypertension I10 Active Assessment Insomnia G47.00 Active Problem Type 2 diabetes mellitus with other specified complication E11.69 Active Problem Dysthymia F34.1 Active Assessment History of melanoma Z85.820 Active Problem Obesity E66.9 Active Problem 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, 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 Active Problem Adjustment disorder with mixed anxiety and depressed mood F43.23 Active Medications Medication Code System Code Instructions Start Date End Date Status Dosage Nortriptyline HCl [facility] [address]-31 25 MG Orally Once a day Active 1 capsule Fluticasone Propionate [facility] [address]-90 50 MCG/ACT Nasally Once a day July 03, 2015 Active 2 spray in each nostril NovoFine [facility] [address]-26 30G X 8 MM SQ QID August 02, 2015 Active as directed Trazodone HCl [facility] 67518108759 50 MG Orally Once a day as needed for sleep Active 1-2 tablet at bedtime as needed Humalog KwikPen [facility] [address]-45 100 UNIT/ML Subcutaneous three times a day Active 15 units with meals Metformin HCl [facility] [address]-45 1000 MG Orally Twice a day Active 1 tablet with meals Valdo Contour Test [facility] [address]-04 0 Bottles In Vitro 3 times a day Oct 08, 2015 Active as directed Ángel Roman [facility] 2200-4249-03 300 units/ml SubQ once a day Active 50 units Lisinopril-Hydrochlorothiazide [facility] [address]-83 20-25 MG Orally Once a day Active 1 tablet Atorvastatin Calcium [facility] 11643053484 40 MG Orally Once a day Active 1 tablet Social History Social History Element Qualifiers Date 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
--- OUTSIDE RECORDS SUMMARY | 2018-05-07 05:20 | XMS REPORT ---
Author Author Debbi Salcido eClinicalWorks Address Unknown Phone Unavailable Care Team Providers Care Deckhand Tuna Boat Name Role Phone Debbi Salcido Unavailable Encounters Encounter Location Date Cough, congestion [facility] July 03, 2015 Cough [facility] July 11, 2015 Unknown [facility] 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 May 02, 2015 Unknown [facility] May 11, 2015 Referral [facility] 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 Problem BPH (benign prostatic hyperplasia) N40.0 Active Problem Acute nasopharyngitis J00 Active Problem Encounter for general adult medical examination without abnormal findings Z00.00 Active Problem Other seasonal allergic rhinitis J30.2 [...] Start Date End Date Status Dosage Tresiba MEDISPAN 4797-1342-81 200 Subcutaneous Once a day August 02, 2015 Dec 01, 2015 Active 65 units Lovastatin [facility] [address]-55 40 MG Orally Once a day Inactive 1 tablet with a meal Atorvastatin Calcium [facility] [address]-11 40 MG Orally Once a day August 03, 2015 Active 1 tablet Social History Social History Element Qualifiers Date 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 [...] prostate and rectal exam? 11/2014 dr. jh hraris August 02, 2015 Pets: . 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
--- OUTSIDE RECORDS SUMMARY | 2018-05-07 05:20 | XMS REPORT ---
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 May 02, 2015 Unknown [facility] May 11, 2015 Referral [facility] 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
--- OUTSIDE RECORDS SUMMARY | 2018-05-07 05:21 | XMS REPORT ---
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
--- OUTSIDE RECORDS SUMMARY | 2018-05-07 05:21 | XMS REPORT ---
Author Author Debbi Salcido [facility] eClinicalWorks Address Unknown Phone Unavailable Care Team Providers Care Mixologist Name Role Phone Debbi Salcido CP Unavailable Allergies No Known Allergies Problems Problem Type Condition Code Onset Dates Condition Status Assessment Type 2 diabetes mellitus with other specified complication E11.69 Active Assessment Hyperlipidemia E78.5 Active Problem Encounter [...] G99.0 Active Problem Depression of infancy to speech therapist early intervention, 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 Active Problem Other seasonal allergic rhinitis J30.2 Active Problem 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
--- OUTSIDE RECORDS SUMMARY | 2018-05-07 05:21 | XMS REPORT ---
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
--- OUTSIDE RECORDS SUMMARY | 2018-05-07 05:21 | XMS REPORT ---
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
--- OUTSIDE RECORDS SUMMARY | 2018-05-07 05:21 | XMS REPORT ---
Author Author Debbi Salcido eClinicalWorks Address Unknown Phone Unavailable Care Team Providers Care Exec. Creative Director Name Role Phone Debbi Salcido Unavailable Encounters Encounter Location Date Cough, congestion [facility] July 03, 2015 Cough [facility] July 11, 2015 Unknown [facility] August 03, 2015 3 mo f/u fasting labs, [facility] 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 May 02, 2015 Unknown [facility] May 11, 2015 Referral [facility] May 22, 2015 MEdication Refill [facility] Oct 08, 2015 Referral [facility] August 20, 2015 Medication [facility] Oct 01, 2015 med refill [facility] Feb 26, 2016 med change [facility] Mar 26, 2016 3mnth f/u fasting labs, [facility] Feb 07, 2016 pneumonia vaccine [facility] Feb 11, 2016 3mnth, fasting labs, [facility] Nov 08, 2015 Unknown [facility] 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 Do you currently use recreational or street drugs? No Feb 11, 2016 Mental Health . depressed, no, is stress a major problem for you?, yes, do you panic when stressed?, yes, cry frequently?, no, no, attempted suicide?, seriously thought about hurting yourself?, no, trouble sleeping?, yes, been to a counselor?, no, currently, no Feb 11, 2016 Diet: . Are you dieting? No, Number of meals in an average day 4, Rank salt intake Medium, Rank fat intake Medium Feb 11, 2016 Men only . usually get up [...] rectal exam? 11/2014 dr. jh harris Feb 11, 2016 Pets: . No Feb 11, 2016 Marital Status: . Feb 11, 2016 Sex . Are you sexually active? Yes, If yes, are you trying for a ? No, Any discomfort with intercourse? no Feb 11, 2016 Smoke Exposure: . Second Hand Smoke Exposure: No Feb 11, 2016 Tobacco Use: . Are you a: Former Smoker 2-3 years (3-4 cigs on weekends), How long ago did you quit: 40 40 yrs ago quit Feb 11, 2016 Exercise: . Mild (1-2 x week), Walking Feb 11, 2016 Alcohol: . Do you drink alcohol? Yes, If yes, what kind? Beer, How many drinks per day? 0, How many drinks per week? 2 to 3 month, Are you concerned about the amount you drink No, Are you prone to "binge" drinking? No, Do you drive after drinking? No Feb 11, 2016 Caffeine . What kind of caffeine do you drink? Coffee tea cola, Number of cups/cans per day? 2 Feb 11, 2016 Smoking . 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
--- OUTSIDE RECORDS SUMMARY | 2018-05-07 05:21 | XMS REPORT ---
[facility] Address Unknown Phone Unavailable Care Team Providers Care Radio Broadcaster Name Role Phone ARGENIS DE DIOS Unavailable Unavailable Problems This patient has no known problems. Allergies, Adverse Reactions, Alerts This patient has no known allergies or adverse reactions. Medications This patient has no known medications. Results Test Description Test Time Test Comments Text Results Atomic Results Result Comments CHEST 2 VIEWS 2018-04-30 12:15:00 [place] [address] Patient Name: JOSIE COOK MR #: [id number] : 1950 Age/Sex: 67/M Req #: [id number] [facility] Physician: Ordered by: ARGENIS DE DIOS MD Report #: [id number] Location: OR Room/Bed: Procedure: [id number] DX/CHEST 2 VIEWS Exam Date: 04/30/18 Exam Time: 1106 REPORT STATUS: Signed EXAMINATION: CHEST 2 VIEWS INDICATION: Pre-op. COMPARISON: None FINDINGS: TUBES and LINES: None. LUNGS: Lungs are not well inflated. Focal opacity in the right lower lung. No evidence of pulmonary edema. PLEURA: No pleural effusion or pneumothorax. HEART AND MEDIASTINUM: The cardiomediastinal silhouette is unremarkable. BONES AND SOFT TISSUES: No acute osseous lesion. Soft tissues are unremarkable. UPPER ABDOMEN: No free air under the diaphragm. IMPRESSION: Low lung volumes with focal opacity in the right lower lung, likely atelectasis. Suggest repeat chest radiograph with better pulmonary inflation to assess for resolution. Signed by: Dr. Lay Fraire MD on 04/30/2018 12:18 PM Dictated By: LAY FRAIRE MD Transcribed By: SONIA on 04/30/18 1218 COPY TO: ARGENIS DE DIOS MD MRI PELVIS WOW 2018-04-15 14:34:00 [place] [address] Patient Name: JOSIE COOK MR #: [id number] : 1950 Age/Sex: 67/M Req #: [id number] Physician: Ordered by: ARGENIS DE DIOS MD Report #: [id number] Location: MRI Room/Bed: Procedure: [id number] MRI/MRI PELVIS WOW Exam Date: 04/15/18 Exam Time: 1000 REPORT STATUS: Signed EXAM: MRI Pelvis WITHOUT and WITH Contrast INDICATION: MALIG NEOP OF PENIS 3 years ago COMPARISON: None. TECHNIQUE: Multiplanar and multisequence imaging was performed of the pelvis from below the inferior poles of the kidneys to the lesser trochanters without and with contrast. T1- weighted, T2-weighted images, T1-weighted in and dea-vj-eotys, and Diffusion weighted images. Dynamic, post gadolinium T1-weighted spoiled gradient echo scans. Routine protocol was performed. IV Contrast: 20 mL of MultiHance gadolinium Oral Contrast: None Medications: None COMPLICATIONS: None FINDINGS: PROSTATE: 7.2 x 6.2 x 7.3 cm. Median lobe hypertrophy. BPH. There is however low T2 signal in the right mid medial/lateral prostate (series 7 image 44). BLADDER: Unremarkable. GI TRACT: No abnormal distention, wall thickening, or evidence of bowel obstruction. Appendix is not clearly identified. There is however no fat stranding or adenopathy in the right lower quadrant to suggest appendicitis. RECTUM: Rectum and mesorectum are unremarkable. LYMPH NODES: No lymphadenopathy. VESSELS: Unremarkable. PERITONEUM / RETROPERITONEUM: No free air or fluid. BONES: Unremarkable. SOFT TISSUES: Unremarkable. IMPRESSION: 1. No evidence of tumor recurrence or suspicious lymph nodes. 2. Prostate enlargement with T2 signal abnormality in the right peripheral zone. Correlate with PSA. Signed by: Dr. Prema Avila M.D. on 04/15/2018 2:59 PM Dictated By: PREMA AVILA MD 0301 Transcribed By: SONIA on 04/15/181458 COPY TO: ARGENIS DE DIOS MD
--- OUTSIDE RECORDS SUMMARY | 2018-05-07 05:21 | XMS REPORT ---
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
--- OUTSIDE RECORDS SUMMARY | 2018-05-07 05:21 | XMS REPORT ---
Author Author Debbi Salcido [employer] Address Unknown Phone Unavailable Care Team Providers Care Court Deputy Name Role Phone Debbi Salcido Unavailable Encounters Encounter Location Date Cough, congestion [facility] July 03, [address] [facility] July 11, [address] [facility] August 03, 2015 3 mo f/u fasting labs, [facility] 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 May 02, 2015 Unknown [facility] May 11, [address] [facility] May 22, [address] [facility] Oct 08, [address] [facility] August 20, [address] [facility] Oct 01, 2015 med [facility] Feb 26, 2016 3mnth f/u fasting labs, [facility] Feb 07, [address] [facility] Feb 11, 2016 3mnth, fasting labs, [facility] Nov 08, 2015 Unknown [facility] 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
--- OUTSIDE RECORDS SUMMARY | 2018-05-07 05:21 | XMS REPORT ---
Author Author Debbi Salcido [facility] [employer] Address Unknown Phone Unavailable Care Team Providers Care Keyboarding Clerk Name Role Phone Debbi Salcido Unavailable Allergies, Adverse Reactions, Alerts Substance Reaction Event Type Iodine Info Not Available Drug Allergy Problems Problem Type Condition Code Onset Dates Condition Status Assessment Hyperlipidemia E78.5 Active Assessment Type 2 diabetes mellitus with other specified complication E11.69 Active Problem Encounter for general adult medical examination without abnormal findings Z00.00 Active Assessment Encounter for general adult medical [...] BPH (benign prostatic hyperplasia) N40.0 Active Problem Need for pneumococcal vaccination Z23 Active Problem Hypertension I10 Active Assessment 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 Active Problem Insomnia G47.00 Active Assessment DM eye manif type II E11.39 Active Problem Neoplasm of uncertain behavior of skin D48.5 Active Assessment Hypertension I10 Active Problem Major 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, single episode, moderate F32.1 Active Problem Polyneuropathy in diabetes E11.42 Active Assessment BMI 35.0-35.9,adult Z68.35 Active Problem Adjustment disorder with mixed anxiety and depressed mood F43.23 Active Assessment Diabetic neuropathy E11.40 Active Problem Dysthymia F34.1 Active Assessment 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 Problem 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 G99.0 Active Assessment 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 Problem Depression of infancy to artificial foliage 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, 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 Active Assessment 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.20 Active Problem Other seasonal allergic rhinitis J30.2 Active Assessment Insomnia G47.00 Active Problem 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 Problem Obesity E66.9 Active Problem Balanitis N48.1 Active Medications Medication Code System Code Instructions Start Date End Date Status Dosage Azelastine HCl [facility] [address]-08 0.1 % Nasally Twice a day Active 1 puff in each nostril NovoLog Flexpen [facility] [address]-18 100 UNIT/ML Subcutaneous tid with meals Mar 26, 2016 Active 15 units NovoFine [facility] [address]-92 30G X 8 MM SQ QID August 02, 2015 Active as directed Valdo Contour Test [facility] [address]-39 0 Bottles In Vitro 3 times a day Oct 08, 2015 Active as directed Tresiba FlexTouch [facility] [address]-37 200 UNIT/ML Subcutaneous once a day Feb 07, 2016 Active 76 units Nortriptyline HCl [facility] [address]-09 25 MG Orally Once a day Active 1 capsule Fluticasone Propionate [facility] [address]-44 50 MCG/ACT Nasally Once a day July 03, 2015 Active 2 spray in each nostril Lisinopril-Hydrochlorothiazide [facility] [address]-67 20-25 MG Orally Once a day Active 1 tablet Atorvastatin Calcium [facility] 34056508572 40 MG Orally Once a day Active 1 tablet Metformin HCl [facility] [address]-19 1000 MG Orally Twice a day Active 1 tablet with meals Trazodone HCl [facility] 77059646491 50 MG Orally Once a day as needed for sleep Active 1-2 tablet at bedtime as needed Vital Signs Date/Time: May 28, 2016 BMI 35.45 Index Weight 195.4 lbs Height 62.25 in Cardiac Monitoring Heart Rate 63 /min Blood Pressure Diastolic 72 mm Hg Blood Pressure Systolic 119 mm Hg Results No Known Results Summary Purpose [employer]ClinicalWorks Submission
--- OUTSIDE RECORDS SUMMARY | 2018-05-07 05:21 | XMS REPORT ---
Author Author Debbi Salcido [facility] [employer] Address Unknown Phone Unavailable Care Team Providers Care Chef De Froid Name Role Phone Debbi Salcido Unavailable Allergies, Adverse Reactions, Alerts Substance Reaction Event Type Iodine Info Not Available Drug Allergy Encounters Encounter Location Date Cough, congestion [facility] July 03, 2015 Cough [facility] July 11, 2015 Unknown [facility] August 03, 2015 3 mo f/u fasting labs, [facility] August 02, 2015 PATROL CONDUCTOR, [place] Palsy [facility] May 02, 2015 Unknown [facility] May 11, 2015 Referral [facility] May 22, 2015 MEdication Refill [facility] Oct 08, 2015 Referral [facility] August 20, 2015 Medication [facility] Oct 01, 2015 3mnth f/u fasting labs, [facility] Feb 07, 2016 pneumonia vaccine [facility] Feb 11, 2016 3mnth, fasting labs, [facility] Nov 08, 2015 Unknown [facility] 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 Problem Obesity E66.9 Active Problem Balanitis N48.1 Active Medications Medication Code System Code Instructions Start Date End Date Status Dosage Fluticasone Propionate [facility] [address]-06 50 MCG/ACT Nasally Once a day July 03, 2015 Active 2 spray in each nostril NovoFine [facility] [address]-15 30G X 8 MM SQ QID August 02, 2015 Active as directed Metformin HCl [facility] [address]-72 1000 MG Orally Twice a day Active 1 tablet with meals Atorvastatin Calcium [facility] 49635246117 40 MG Orally Once a day Active 1 tablet Valdo Contour Test [facility] [address]-71 0 Bottles In Vitro 3 times a day Oct 08, 2015 Active as directed Lisinopril-Hydrochlorothiazide [facility] [address]-08 20-25 MG Orally Once a day Active 1 tablet Humalog KwikPen [facility] [address]-48 100 UNIT/ML Subcutaneous three times a day Active 15 units with meals Tresiba FlexTouch [facility] [address]-56 200 UNIT/ML Subcutaneous once a day Feb 07, 2016 Active 70 units Azelastine HCl [facility] [address]-93 0.1 % Nasally Twice a day Active 1 puff in each nostril Nortriptyline HCl [facility] [address]-83 25 MG Orally Once a day Active 1 capsule Trazodone HCl [facility] 20819595446 50 MG Orally Once a day as [...] 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, 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 Family history Qualifier Description Comment Date Reported Mat Grandmother Comment not available Feb 11, 2016 Siblings Comment not available Feb 11, 2016 Children Comment not available Feb 11, 2016 Father Comment not available Feb 11, 2016 Sarah Valdivia Grandmother Comment not available Feb 11, 2016 Mother alive Comment not available Feb 11, 2016 Sarah G Grandfather Comment not available Feb 11, 2016 Other: Comment not available Feb 11, 2016 Erik G Grandmother Comment not available Feb 11, 2016 Erik G Grandfather Comment not available Feb 11, 2016 Patl Grandmother Comment not available Feb 11, 2016 Mat Grandfather Comment not available Feb 11, 2016 Pat Grandfather Comment not available Feb 11, 2016 Vital Signs Date/Time: Feb 11, 2016 Weight 195.6 lbs Height 62 in Temperature 98.1 F Cardiac Monitoring Heart Rate 96 /min Blood Pressure Diastolic 83 mm Hg Blood Pressure Systolic 146 mm Hg Immunizations Vaccine Administration Date Pneumonia - Medicare Feb 11, 2016 Summary Purpose [employer] Submission
[2018-05-07 08:10] VITALS: BP 125/67
--- NOTE | 2018-05-09 00:27 | Operative Report ---
DATE OF PROCEDURE: 05/07/2018 SURGEON: Renny Mccrary MD PREOPERATIVE DIAGNOSIS: Penile cancer. POSTOPERATIVE DIAGNOSIS: Penile cancer with postoperative penile pain. PROCEDURES PERFORMED: 1. Dorsal and circumferential ring block of the penis entirely separate procedure for penile pain not required for the procedure, as the patient underwent general anesthesia. 2. Deep penile biopsy x2 . ANESTHESIA: General. ESTIMATED BLOOD LOSS: Minimal. COMPLICATIONS: None. INDICATIONS FOR PROCEDURE: Mr. Gonzalez is a 67-year-old male patient with a history of penile cancer, who had undergone Mohs surgery, now presents with recurrent lesion in the frenulum as well as the left dorsum of the glans. The seroma is indurated and very suspicious for cancer and I had a long discussion about alternatives, risks, and benefits. He specifically despite recommendations elects to undergo biopsy. He voiced understanding of the options, alternatives, the risks and benefits and wished to proceed. PROCEDURE IN DETAIL: After informed consent was obtained, the patient was taken to the operative suite, placed supine on the table, and underwent general anesthesia. There was a dorsal circumferential ring block. The previous was performed with 0.25% Marcaine. Attention was then turned to the two lesions. They were excised and passed off the table as specimens. Meticulous hemostasis was obtained with Bovie electrocautery in a monopolar fashion with pickups. Hemostasis noted to be excellent. The wounds were dressed. The patient was awakened by anesthesia and transferred to the recovery room in excellent condition with no untoward effects noted. Renny Mccrary MD ES/MODL /[id number] MTDD
== END | disposition home or self-care (01) ==
LOC: OR 05:10
PROVIDERS: ATTEND Urology
DX: C60.9 Malignant neoplasm of penis, unspecified (principal); R97.20 Elevated prostate specific antigen [PSA]; N40.1 Benign prostatic hyperplasia with lower urinary tract symptoms; N13.8 Other obstructive and reflux uropathy; R39.14 Feeling of incomplete bladder emptying; R35.1 Nocturia; N52.9 Male erectile dysfunction, unspecified; E29.1 Testicular hypofunction; I10 Essential (primary) hypertension; E11.9 Type 2 diabetes mellitus without complications; Z88.6 Allergy status to analgesic agent; Z01.810 Encounter for preprocedural cardiovascular examination; Z01.812 Encounter for preprocedural laboratory examination; Z01.818 Encounter for other preprocedural examination; Z79.4 Long term (current) use of insulin; Z79.82 Long term (current) use of aspirin; Z68.32 Body mass index [BMI] 32.0-32.9, adult; Z87.891 Personal history of nicotine dependence
CPT/HCPCS: 11620 ×2; 36415 ×2; 54105; 71046; 80048; 82948; 85025; 88305; 93005; J0690; J1100; J2001; J2250; J2405; J2704

== ENCOUNTER 2018-06-18 10:52 | Observation (INO) | payer MEDICARE ==
[2018-06-14 12:55] LABS: BASOPHILS # (AUTO) 0.1 (0.0-0.1); BASOPHILS % 0.4 % (0.0-1.0); EOSINOPHILS # (AUTO) 0.2 (0.0-0.4); EOSINOPHILS % 1.3 % (0.0-6.0); HEMATOCRIT 45.1 % (38.2-49.6); HEMOGLOBIN 15.1 g/dL (14.0-18.0); LYMPHOCYTES # (AUTO) 2.1 (1.0-3.2); LYMPHOCYTES % 16.2 % (18.0-39.1); MEAN CORPUSCULAR HEMOGLOBIN 28.2 pg (28-32); MEAN CORPUSCULAR HGB CONC 33.5 g/dL (31-35); MEAN CORPUSCULAR VOLUME 84.1 fL (81-99); MONOCYTES # (AUTO) 0.7 (0.2-0.8); MONOCYTES % 5.4 % (4.4-11.3); NEUTROPHILS # (AUTO) 9.8 (2.1-6.9); NEUTROPHILS % 76.3 % (38.7-80.0); PLATELET COUNT 355 x10e3/uL (140-360); RED BLOOD COUNT 5.36 x10e6/uL (4.3-5.7); RED CELL DISTRIBUTION WIDTH 13.2 % (11.7-14.4)
[2018-06-14 13:07] LABS: ANION GAP 13.8 mmol/L (8-16); BLOOD UREA NITROGEN 20 mg/dL (7-26); BUN/CREATININE RATIO 22 (6-25); CALCIUM 9.3 mg/dL (8.4-10.2); CARBON DIOXIDE 27 mmol/L (22-29); CHLORIDE 102 mmol/L (98-107); CREATININE, SERUM 0.93 mg/dL (0.72-1.25); EST GLOMERULAR FILTRATION RATE > 60 ML/MIN (60-); GLUCOSE 269 mg/dL (74-118); POTASSIUM 3.8 mmol/L (3.5-5.1); SODIUM 139 mmol/L (136-145)
[~2018-06-18] VITALS: Ht 162.6 cm; Wt 84.8 kg
[~2018-06-18 10:52] MED LIST changes: -BUPIVACAINE 0.25% 30ML SDV INJ ONE; -CEFAZOLIN SOD 1 GM/NS 50ML 50 ML IV ONE; -DEXAMETHASONE SOD PHOS INJ 4 MG/ML VIAL ONE; -FENTANYL CITRATE/PF 100MCG/2 ML INJ ONE; -LIDOCAINE HCL 2% LOCAL INJ 5 ML SDV VIAL INJ ONE; -MIDAZOLAM HCL 2 MG/2 ML VIAL ONE; -MUPIROCIN 2% OINT 22 GM TUBE ONE; -ONDANSETRON HCL INJ 2MG/ML 2ML 2 MG/ML VIAL ONE; -PROPOFOL IV EMULSION 10 MG/ML 20 ML VIAL ONE; -SEVOFLURANE INHAL SOLN 250 ML PEN BTL ONE
--- OUTSIDE RECORDS SUMMARY | 2018-06-18 10:55 | XMS REPORT | Clinical Summary ---
Author Author [facility] Address Unknown Phone Unavailable Care Team Providers Care Director Trading Name Role Phone Debbi Hansen MD PCP [...] MOUTH ONE TIME PER WEEK Active fluticasone propionate SPRAY 2 16 mL 0 (FLONASE) 50 SPRAYS INTO 9 mcg/actuation nasal spray EACH NOSTRIL EVERY DAY 03/28/2018 chlorpheniramine-phenylep Take 1 tablet 60 tablet [...] total) by mouth daily for 14 days. 05/09/2018 Discontinued fluticasone (FLONASE) 50 2 sprays (100 15.8 mL 0 mcg/actuation nasal spray mcg total) by 9 Each Nare route daily. Active Problems Problem Noted Date Chronic maxillary sinusitis 03/30/2018 Post-nasal drainage 03/30/2018 Encounters Care Team Description Date Type Specialty Austin Newman MD 05/09/2018 Refill Otolaryngology Austin Newman MD Chronic maxillary sinusitis (Primary Dx); Post-nasal drainage 03/30/2018 Office Visit Otolaryngology Austin Newman MD Chronic maxillary sinusitis (Primary Dx) 03/16/2018 Office Visit Otolaryngology Austin Newman MD Post-nasal drainage 03/09/2018 Hospital Radiology Encounter Austin Newman MD Post-nasal drainage (Primary Dx) 02/26/2018 Office Visit Otolaryngology after 06/17/2017 Social History Date Tobacco Use Types Packs/Day [...] Taken Vital Sign Reading 03/30/2018 10:52 AM PANEL SAW OPERATOR Blood Pressure 157/81 03/30/2018 10:52 AM PANEL SAW OPERATOR Pulse 91 - Temperature - - Respiratory Rate - - Oxygen Saturation - - Inhaled Oxygen - Concentration 03/30/2018 10:52 AM PANEL SAW OPERATOR Weight 88.9 kg (196 lb) 03/30/2018 10:52 AM PANEL SAW OPERATOR Height 165.1 cm (5' 5") 03/30/2018 10:52 AM PANEL SAW OPERATOR Body Mass Index 32.62 Plan of Treatment Health Maintenance Due Date Last Done Comments COLON CANCER SCREENING 2000 SHINGLES VACCINES (#1) 2000 65+ PNEUMOCOCCAL VACCINE 10/27/2015 (1 of 2 - PCV13) PNEUMOCOCCAL 10/27/2015 POLYSACCHARIDE VACCINE AGE 65 AND OVER INFLUENZA VACCINE 09/23/2018 Procedures Comments Procedure Name Priority Date/Time Associated Diagnosis CT SINUS WO CONTRAST Routine 03/09/2018 Post-nasal drainage 12:58 PM PANEL SAW OPERATOR after 06/17/2017 Results * CT Sinus Wo Contrast (03/09/2018 12:58 PM PANEL SAW OPERATOR) Narrative Performed At EXAMINATION: CT SINUS WO [...] sinus. Correlate for acute on chronic sinusitis. [id number] Procedure Note Interface, Radiology Results Incoming - 03/09/2018 1:27 PM PANEL SAW OPERATOR EXAMINATION: CT SINUS WO CONTRAST CLINICAL HISTORY: [...] sinus. Correlate for acute on chronic sinusitis. [id number] Performing Organization Address City/State/Zipcode Phone Number [facility] [address] [place] [address] after 06/17/2017 Insurance Payer Benefit Subscriber ID Type Phone Address Plan / Group [employer] xxxxxxxxx O [facility] Advance Directives Patient has advance care planning documents on file. For more information, lorri hurst contact: Zechariah Raymundo [address] [place] [address]
[2018-06-18] MEDS ORDERED: CEFAZOLIN SOD 1 GM/NS 50ML 50 ML IV ONE (11:55)
[2018-06-18] MEDS ORDERED: BACITRACIN 50,000 UNIT VIAL ONE (12:02)
[2018-06-18] MEDS ORDERED: BUPIVACAINE HCL 0.5% INJ 30 ML VIAL INJ ONE (12:02)
[2018-06-18] MEDS ORDERED: BACITRACIN ZINC 15 GM OINT ONE (12:02)
--- OUTSIDE RECORDS SUMMARY | 2018-06-18 15:31 | XMS REPORT | Clinical Summary ---
Author Author [facility] Address Unknown Phone Unavailable Care Team Providers Care Manager Of Learning Name Role Phone Debbi Hansen MD PCP [...] Taken Vital Sign Reading 03/30/2018 10:52 AM PLEAT PATTERNMAKER Blood Pressure 157/81 03/30/2018 10:52 AM PLEAT PATTERNMAKER Pulse 91 - Temperature - - Respiratory Rate - - Oxygen Saturation - - Inhaled Oxygen - Concentration 03/30/2018 10:52 AM PLEAT PATTERNMAKER Weight 88.9 kg (196 lb) 03/30/2018 10:52 AM PLEAT PATTERNMAKER Height 165.1 cm (5' 5") 03/30/2018 10:52 AM PLEAT PATTERNMAKER Body Mass Index 32.62 Plan of Treatment Health Maintenance Due Date Last Done Comments COLON CANCER SCREENING 2000 SHINGLES VACCINES (#1) 2000 65+ PNEUMOCOCCAL VACCINE 10/27/2015 (1 of 2 - PCV13) PNEUMOCOCCAL 10/27/2015 POLYSACCHARIDE VACCINE AGE 65 AND OVER INFLUENZA VACCINE 09/23/2018 Procedures Comments Procedure Name Priority Date/Time Associated Diagnosis CT SINUS WO CONTRAST Routine 03/09/2018 Post-nasal drainage 12:58 PM PLEAT PATTERNMAKER after 06/17/2017 Results * CT Sinus Wo Contrast (03/09/2018 12:58 PM PLEAT PATTERNMAKER) Narrative Performed At EXAMINATION: CT SINUS WO [...] sinus. Correlate for acute on chronic sinusitis. [id number] Procedure Note Interface, Radiology Results Incoming - 03/09/2018 1:27 PM PLEAT PATTERNMAKER EXAMINATION: CT SINUS WO CONTRAST CLINICAL HISTORY: [...] sinus. Correlate for acute on chronic sinusitis. [id number] Performing Organization Address City/State/Zipcode Phone Number [facility] [address] [place] [address] after 06/17/2017 Insurance Payer Benefit Subscriber ID Type Phone Address Plan / Group [employer] xxxxxxxxx O [facility] Advance Directives Patient has advance care planning documents on file. For more information, lorri hurst contact: Zechariah Raymundo [address] [place] [address]
[2018-06-18 16:07] VITALS: BP 163/71
[2018-06-18 17:06] VITALS: BP 163/71
[2018-06-18 17:11] VITALS: BP 163/71
--- NOTE | 2018-06-18 17:25 | Operative Report ---
DATE OF PROCEDURE: 06/18/2018 SURGEON: Renny Mccrary MD PREOPERATIVE DIAGNOSIS: Invasive penile carcinoma. POSTOPERATIVE DIAGNOSIS: Invasive penile carcinoma. PROCEDURES: Partial penectomy. CERAMIC ENGINEERING PROFESSOR: Raphael Donato M.D. ANESTHESIA: General. ESTIMATED BLOOD LOSS: 15 mL. COMPLICATIONS: None. DRAINS: Twenty-Swiss Singh catheter. INDICATIONS FOR PROCEDURE: José Luis Gonzalez is a 67-year-old male patient, who had previously had a "wedge resection" for penile carcinoma by Dr. 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 The patient had extensive discussion in the office regarding alternatives, the risks and benefits, including doing nothing, partial penectomy, radical penectomy, possible need for lymph node dissections, chemotherapy, radiation therapy. He voiced understanding of the options, alternatives, the risks and benefits and elected to proceed with partial penectomy. PROCEDURE IN DETAIL: After informed consent was obtained, the patient was taken to the operative suite. He was placed supine on the operative table and underwent general anesthesia by Anesthesia Service. He was given prophylactic antibiotics and had ARCADIO hose and SCDs placed. Attention was turned to lesions on the penis. In a circumferential fashion, a 2 cm proximal margin was marked along the penis. The cancerous lesions were covered with glove to prevent tumor spillage. At this time, utilizing a scalpel, the line was sharply incised. Meticulous hemostasis was obtained of the skin. A tourniquet was then applied at the base of the penis. Bojorquez's fascia and the corpora were then sharply incised. After ligating dorsal neurovascular bundle individually with 2-0 Vicryl sutures. At this time, the corporal arteries were identified and were tied with stick tie and corpus spongiosum was then dissected distally approximately 1 cm to leave a urethral stump. The urethra was transected and spatulated. The distal portion of the penis was then passed off table as specimen and sent to pathology, which returned negative for proximal margins. At this time, meticulous hemostasis was assured. The corpora were closed with an interrupted vertical mattress suture utilizing 2-0 Vicryl. The tourniquet was then let down and good hemostasis was seen from the corpora with some small areas of bleeding around the sponge, which were cauterized in a bipolar fashion with monopolar cautery and pickups. The wound was again irrigated. Hemostasis noted to be excellent. The urethra was spatulated on the dorsum. Urethral anastomosis was performed on the ventral aspect to the skin utilizing interrupted 3-0 chromic gut suture and interrupted 4-0 Vicryl sutures with good spatulation and good urethral anastomosis. A 20-Swiss Singh catheter was then inserted, which drained crystal clear urine. At the end of this, U-stitch was placed to tag the urethra to the Bojorquez's fascia to the corpora and then tagged to the skin bilaterally to complete the dorsal aspect urethral skin anastomosis. The remainder of the incision was then closed with vertical mattress sutures of interrupted 3-0 chromic gut suture. the wound was dressed. The patient was awakened from anesthesia and transported to recovery room in excellent condition with all sponge and instrument counts correct x2. MD MARTÍN Perkins/RUMA /[id number] JOSH
[2018-06-18 18:16] VITALS: BP 163/71
[2018-06-18] MEDS ORDERED: DEXTROSE 5%/0.45% SOD CHL 1,000 ML IV PRN (18:30)
[2018-06-18] MEDS ORDERED: MORPHINE SULFATE 2 MG/ML SYR 1ML IV PRN (18:30)
[2018-06-18] MEDS: ACETAMINOPHEN/CODEINE 300MG - 30MG TAB PO PRN (18:40)
[2018-06-18] MEDS ORDERED: DEXTROSE 50% SYRINGE 50 ML IV PRN (18:45)
[2018-06-18] MEDS ORDERED: MORPHINE SULFATE INJ 4 MG/ML INJ 1ML IV PRN (18:45)
--- NOTE | 2018-06-18 19:00 | NUR ---
received report from day nurse. patient is resting comfortably in bed. bed is in lowest position and call mcdonald is within reach. will continue to monitor patient.
[2018-06-18] MEDS ORDERED: KETOROLAC TROMETHAMINE 30 MG/ML VIAL ONE (19:24)
[2018-06-18] MEDS ORDERED: LIDOCAINE HCL 2% LOCAL INJ 5 ML SDV VIAL INJ ONE (19:24)
[2018-06-18] MEDS ORDERED: PROPOFOL IV EMULSION 10 MG/ML 20 ML VIAL ONE (19:24)
[2018-06-18] MEDS ORDERED: SEVOFLURANE INHAL SOLN 250 ML PEN BTL ONE (19:24)
[2018-06-18] MEDS ORDERED: PHENYLEPHRINE HCL 1% 10 MG/ML VIAL ONE (19:24)
[2018-06-18] MEDS ORDERED: ONDANSETRON HCL INJ 2MG/ML 2ML 2 MG/ML VIAL ONE (19:24)
[2018-06-18] MEDS ORDERED: MIDAZOLAM HCL 2 MG/2 ML VIAL ONE (19:32)
[2018-06-18] MEDS ORDERED: FENTANYL CITRATE/PF 100MCG/2 ML INJ ONE (19:32)
[2018-06-18 20:00] VITALS: BP 154/73
[2018-06-18 20:11] VITALS: BP 154/73
[2018-06-18] MEDS ORDERED: INSULIN LISPRO 100 UNIT/1 ML 3ML VIAL SQ SCH ×2 (21:00)
[2018-06-18] MEDS ORDERED: SODIUM CHLORIDE 0.9% 250ML 250 ML ONE (21:29)
[2018-06-18] MEDS: CEFAZOLIN SOD 1 GM/NS 50ML 50 ML IV SCH (22:05)
[2018-06-19] VITALS: BP 151/72
[2018-06-19] MEDS: ACETAMINOPHEN/CODEINE 300MG - 30MG TAB PO PRN (02:19)
[2018-06-19 04:00] VITALS: BP 142/98
[2018-06-19] MEDS: CEFAZOLIN SOD 1 GM/NS 50ML 50 ML IV SCH (05:27)
[2018-06-19 05:34] LABS: BASOPHILS % 0.3 % (0.0-1.0); EOSINOPHILS # (AUTO) 0.1 (0.0-0.4); EOSINOPHILS % 0.6 % (0.0-6.0); HEMATOCRIT 44.3 % (38.2-49.6); HEMOGLOBIN 14.6 g/dL (14.0-18.0); LYMPHOCYTES # (AUTO) 2.5 (1.0-3.2); LYMPHOCYTES % 16.8 % (18.0-39.1); MEAN CORPUSCULAR HEMOGLOBIN 27.9 pg (28-32); MEAN CORPUSCULAR VOLUME 84.5 fL (81-99); MONOCYTES # (AUTO) 0.9 (0.2-0.8); MONOCYTES % 6.2 % (4.4-11.3); NEUTROPHILS # (AUTO) 11.2 (2.1-6.9); NEUTROPHILS % 75.7 % (38.7-80.0); PLATELET COUNT 346 x10e3/uL (140-360); RED BLOOD COUNT 5.24 x10e6/uL (4.3-5.7); RED CELL DISTRIBUTION WIDTH 13.6 % (11.7-14.4)
[2018-06-19 05:57] LABS: ANION GAP 14.1 mmol/L (8-16); BLOOD UREA NITROGEN 17 mg/dL (7-26); BUN/CREATININE RATIO 21 (6-25); CALCIUM 9.1 mg/dL (8.4-10.2); CARBON DIOXIDE 29 mmol/L (22-29); CHLORIDE 103 mmol/L (98-107); EST GLOMERULAR FILTRATION RATE > 60 ML/MIN (60-); GLUCOSE 111 mg/dL (74-118); POTASSIUM 4.1 mmol/L (3.5-5.1); SODIUM 142 mmol/L (136-145)
--- NOTE | 2018-06-19 07:04 | NUR ---
report given to day nurse. patient is resting comfortably in bed. bed is in lowest position and call mcdonald is within reach.
[2018-06-19] MEDS ORDERED: INSULIN GLARGINE 100 UNITS/ML VIAL SQ SCH ×2 (07:30→16:30)
[2018-06-19] MEDS ORDERED: INSULIN LISPRO 100 UNIT/1 ML 3ML VIAL SQ SCH (07:30)
[2018-06-19 07:58] VITALS: BP 195/89
[2018-06-19] MEDS ORDERED: GABAPENTIN 300 MG CAP PO SCH (09:00)
[2018-06-19 10:47] VITALS: BP 161/89
[2018-06-19] MEDS ORDERED: TYLENOL WITH C1 EACH PO (11:16)
[2018-06-19] MEDS ORDERED: CLINDAMYCIN HC150 MG PO (11:16)
[2018-06-19] MEDS ORDERED: ZOFRAN4 MG PO (11:17)
--- NOTE | 2018-06-19 12:23 | NUR ---
patient discharged home, Dr Mccrary had rounds and given new order send him home with Singh's catheter with leg bag. Reinforced dressing on penile area, no bleeding or drainage noted, Prescription given, IV canula removed with tip intact, no ss of infiltration noted. at bed side giving ride, all personnel belongings with him
--- NOTE | 2018-06-19 13:29 | NUR ---
SOCIAL WORK INITIAL ASSESSMENT Steward/Stewardess [employer]ist [employer] to bedside to discuss plan of care with patient/family. CM/SW role and care transitions discussed. Anticipated discharge plan discussed along with duration of care. CM/SW discussed patients right to make decisions in care. CM/SW work hours given. Patient lives: IN HOUSE WITH FAMILY Admit/Transfer: VIA ED POA/Emergency contact: HOMERO [phone] Current/Previous Home Health: NONE PCP/Follow-up Care: [facility] Current/Previous DME: NONE Other Services: NONE Employment Status: NONE Areas of Concerns: NONE Referral Needs: NONE Education Needs: NONE IMM/SIMON given and signed (if applicable): NA Goal for discharge: RETURN HOME CM/SW left business card at the bedside with contact information. Name and number was also written on the patients whiteboard. Patient verbalized understanding of discussion. CM will follow-up with ongoing discharge and transition of care needs.
[2018-06-19] MEDS ORDERED: NORTRIPTYLINE HCL 25 MG CAP PO SCH (21:00)
== END 2018-06-19 12:14 | disposition home or self-care (01) ==
LOC: OR 10:52 → PACU V 14:37 → IMCU 15:45
PROVIDERS: ADMIT Urology; ATTEND Urology
DX: C60.9 Malignant neoplasm of penis, unspecified (principal); N40.1 Benign prostatic hyperplasia with lower urinary tract symptoms; E29.1 Testicular hypofunction; R35.1 Nocturia; R39.14 Feeling of incomplete bladder emptying; N52.9 Male erectile dysfunction, unspecified
CPT/HCPCS: 36415 ×3; 54120; 80048 ×2; 82948 ×2; 85025 ×2; 88309; 88331; G0378 ×2; J0690 ×2; J1815; J1885; J2001; J2250; J2270; J2370; J2405; J2704; J7050; 88302; 88342